=== PATIENT | female | born 1990 | race Caucasian/White ===

== ENCOUNTER 2016-03-11 11:20 | Emergency (ER) | payer OTHER ==
[2016-03-11 13:06] LABS: BASO % 0.9 % (0.0-1.0); EOS # 0.1 K/mm3 (0.0-0.50); EOS % 2.6 % (0.0-3.0); LARGE UNSTAINED CELL # 0.1 K/mm3 (0.0-0.4); LARGE UNSTAINED CELL % 2.2 % (0.0-4.0); LYMPH # 1.4 K/mm3 (1.5-6.5); LYMPH % 39.1 % (24.0-44.0); MEAN CORPUSCULAR HEMOGLOBIN 29.8 pg (27.0-33.0); MEAN CORPUSCULAR HGB CONC 34.4 g/dl (32.0-36.5); MEAN CORPUSCULAR VOLUME 86.7 fl (80.0-96.0); MONO # 0.3 K/mm3 (0.0-0.8); MONO % 7.4 % (0.0-5.0); NEUTROPHILS # 1.7 K/mm3 (1.8-7.7); NEUTROPHILS % 47.8 % (36.0-66.0); PLATELET COUNT, AUTOMATED 190 k/mm3 (150-450); RED CELL DISTRIBUTION WIDTH 14.2 % (11.5-14.5); WHITE BLOOD COUNT 3.5 K/mm3 (4.0-10.0)
[2016-03-11 13:18] LABS: CONTROL LINE HCG INT CTR LINE PRESENT
[2016-03-11 13:19] LABS: INR 0.97
[2016-03-11 13:22] LABS: ANION GAP 9 MEQ/L (8-16); BLOOD UREA NITROGEN 14 MG/DL (7-18); CALCIUM LEVEL 9.3 MG/DL (8.5-10.1); CARBON DIOXIDE LEVEL 27 MEQ/L (21-32); CHLORIDE LEVEL 106 MEQ/L (98-107); CREATININE FOR GFR 0.64 MG/DL (0.55-1.02); GLOMERULAR FILTRATION RATE > 60.0 (>60); GLUCOSE, FASTING 85 MG/DL (70-105); POTASSIUM SERUM 3.3 MEQ/L (3.5-5.1); SODIUM LEVEL 142 MEQ/L (136-145)
--- NOTE | 2016-03-11 14:30 | EDDOCDS ---
Nurse's Notes [facility] Name: Eulalia Santos Age: 25 yrs Sex: Female : 1990 Arrival Date: 03/11/2016 Time: 11:20 Bed PD Private MD: Osmany Blanco D Diagnosis: Abnormal uterine and vaginal bleeding, unspecified;Other ovarian cysts Presentation: 03/11 11:29 Presenting complaint: Patient states: vaginal bleeding for 6 months after giving dy via vaginal delivery 7 months ago. bleeding stopped for a couple of days. for the last month has had dark vaginal bleeding. changing regular every 2-3 hours. Risk factors: The patient reports no loss of conciousness prior to arrival. This patient has not had a hysterectomy. This patient has not begun menopause. Adult Sepsis Screening: The patient does not have new or worsening altered mentation. Patient's respiratory rate is less than 22. Systolic blood pressure is greater than 100. Patient has a qSOFA score of 0- Negative Sepsis Screen. Suicide/Homicide risk assessment- the patient denies having any suicidal and/or homicidal ideations and does not present with any other emotional, behavioral or mental health complaints. Status: Patient is not a front services agent or dependent. Transition of care: patient was not received from another setting of care. 11:29 Acuity: SMITH Level 3 dy 11:29 Method Of Arrival: Walkin/Carried/Asstd dy Triage Assessment: 11:32 General: Appears in no apparent distress. Pain: Denies pain. Pt Declines HIV testing. dy : Reports vaginal bleeding that is bright red light flow. 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 nicotine 21 mg/24 hr TD pt24 1 patch once daily - PMHx: none; - PSHx: none; - Social history: Smoking status: Patient uses tobacco products, light tobacco smoker. No barriers to communication noted, The patient speaks fluent Mexican, Speaks appropriately for age. - Family history: Not pertinent. - : The pt / caregiver states he / she is not on anticoagulants. Home medication list is obtained from the patient. - Exposure Risk Screening:: None identified. Screenin:27 Screening information is obtained from the patient. Fall risk: No risks identified. mlb1 Assistance ADL's: requires no assistance with activities of daily living. Abuse/DV Screen: The patient / caregiver reports he/she is: not in a situation that causes fear, pain or injury. Nutritional screening: No deficits noted. Advance Directives: Currently, there is no health care proxy. home support is adequate. Assessment: 14:26 General: Appears in no apparent distress, comfortable, Behavior is. Pain: Location: mlb1 left inguinal area Pain currently is 4 out of 10 on a pain scale. : Denies vaginal bleeding. Derm: No deficits noted. Vital Signs: 11:22 BP 116 / 72; Pulse 95; Resp 16; Temp 97.3(O); Pulse Ox 97% ; Weight 56.7 kg; Height 5 cmb ft. 4 in. (162.56 cm); Pain 10/10; 12:34 BP 120 / 73 RA Supine (auto/); Pulse 83; jf3 12:34 BP 118 / 67 RA Sitting (auto/); Pulse 91; jf3 12:34 BP 114 / 71 RA Standing (auto/); Pulse 102; jf3 14:24 BP 119 / 74 RA Sitting (auto/reg); Pulse 94; Resp 18; Temp 97.5(O); Pulse Ox 99% on rs6 R/A; Pain 3/10; 11:22 Body Mass Index 21.46 (56.70 kg, 162.56 cm) cmb 12:34 Osmany Nicole aware of ortho VS jf3 Vitals: 11:22 Log In Time: March 11, 2016 at 11:20. cmb ED Course: 11:21 Patient visited by Annabella Stevens. cmb 11:21 Osmany Blanco is Private Physician. cmb 11:21 Patient moved to Waiting cmb 11:23 Patient moved to Pre RCE cmb 11:32 Triage Initiated dy 11:56 Patient moved to Triage 2 mlb1 12:03 Osmany Nicole PA-C is PHCP. ar2 12:03 Maria Isabel Silva MD is Attending Physician. ar2 12:03 Patient visited by Osmany Nicole PA-C. ar2 12:32 Patient moved to PD jf3 12:35 Patient visited by Francisco Lawton RN. jf3 12:48 MED Profile Sent. jf3 12:48 HCG,Serum Qualitative Sent. jf3 12:49 Pt & Aptt Sent. jf3 12:49 Type & Screen Sent. jf3 12:49 CBC with Diff Sent. jf3 12:49 Labs drawn. (by ED staff). Sent per order to lab. jf3 12:50 Patient visited by Francisco Lawton RN. jf3 12:51 Patient moved to Ultrasound sm5 12:57 Assist provider with pelvic exam: Set up pelvic tray. Specimens sent to lab. rs6 12:59 Patient visited by Susan Renner PCA. rs6 12:59 GC & Chlamydia Amplification Sent. rs6 12:59 Wet Prep Sent. rs6 13:02 Patient name changed from Eulalia\S\R\S\Santos\S\ to Eulalia\S\Christine\S\Santos. EDMS 13:03 [facility] Payment Agreement was scanned into [employer] and attached to record. lg 13:17 Patient moved to PD [facility] 14:11 Marisel Smith MD is Referral Physician. ar2 14:24 Patient visited by Susan Renner PCA. rs6 14:28 The patient / caregiver is instructed regarding the plan of care and ED course. mlb1 14:28 No IV's were initiated during this patient's visit. mlb1 Order Results: Lab Order: CBC with Diff; SPEC'M 03/11/16 12:42 Test: WHITE BLOOD COUNT; Value: 3.5; Range: 4.0-10.0; Abnormal: Below low normal; Units: K/mm3; Status: F Test: RED BLOOD COUNT; Value: 5.05; Range: 4.00-5.40; Units: M/mm3; Status: F Test: HEMOGLOBIN; Value: 15.1; Range: 12.0-16.0; Units: g/dl; Status: F Test: HEMATOCRIT; Value: 43.7; Range: 36.0-47.0; Units: %; Status: F Test: MEAN CORPUSCULAR VOLUME; Value: 86.7; Range: 80.0-96.0; Units: fl; Status: F Test: MEAN CORPUSCULAR HEMOGLOBIN; Value: 29.8; Range: 27.0-33.0; Units: pg; Status: F Test: MEAN CORPUSCULAR HGB CONC; Value: 34.4; Range: 32.0-36.5; Units: g/dl; Status: F Test: RED CELL DISTRIBUTION WIDTH; Value: 14.2; Range: 11.5-14.5; Units: %; Status: F Test: PLATELET COUNT, AUTOMATED; Value: 190; Range: 150-450; Units: k/mm3; Status: F Test: NEUTROPHILS %; Value: 47.8; Range: 36.0-66.0; Units: %; Status: F Test: LYMPH %; Value: 39.1; Range: 24.0-44.0; Units: %; Status: F Test: MONO %; Value: 7.4; Range: 0.0-5.0; Abnormal: Above high normal; Units: %; Status: F Test: EOS %; Value: 2.6; Range: 0.0-3.0; Units: %; Status: F Test: BASO %; Value: 0.9; Range: 0.0-1.0; Units: %; Status: F Test: LARGE UNSTAINED CELL %; Value: 2.2; Range: 0.0-4.0; Units: %; Status: F Test: NEUTROPHILS #; Value: 1.7; Range: 1.8-7.7; Abnormal: Below low normal; Units: K/mm3; Status: F Test: LYMPH #; Value: 1.4; Range: 1.5-6.5; Abnormal: Below low normal; Units: K/mm3; Status: F Test: MONO #; Value: 0.3; Range: 0.0-0.8; Units: K/mm3; Status: F Test: EOS #; Value: 0.1; Range: 0.0-0.50; Units: K/mm3; Status: F Test: BASO #; Value: 0.0; Range: 0.0-0.2; Units: K/mm3; Status: F Test: LARGE UNSTAINED CELL #; Value: 0.1; Range: 0.0-0.4; Units: K/mm3; Status: F Lab Order: Type & Screen; SPEC'M 03/11/16 12:42 Test: BLOOD TYPE; Value: O POS; Status: F Test: AB SCREEN (INDIRECT ADY)GEL; Value: NEGATIVE; Status: F Lab Order: Pt & Aptt; [facility]' 03/11/16 12:42 Test: PROTHROMBIN TIME; Value: 13.0; Range: 12.3-14.5; Units: SECONDS; Status: F Test: INR; Value: 0.97; Status: F Test: PARTIAL THROMBOPLASTIN TIME; Value: 28.6; Range: 26.6-37.1; Units: SECONDS; Status: F Test Note: ; THERAPUTIC HUMAN INR VALUES INDICATIONS NORMAL RANGES PROPHYLAXIS/TREATMENT OF: VENOUS THROMBOSIS 2.0-3.0 PULMONARY EMBOLISM 2.0-3.0 PREVENTION OF SYSTEMIC EMBOLISM FROM: TISSUE HEART VALVES 2.0-3.0 ACUTE MYOCARDIAL INFARCTION 2.0-3.0 VALVULAR HEART DISEASE 2.0-3.0 ATRIAL FIBRILLATION 2.0-3.0 MECHANICAL VALVES(HIGH RISK) 2.5-3.5 RECURRENT MYOCARDIAL INFARCTION 2.5-3.5 Lab Order: HCG,Serum Qualitative; SPEC' 03/11/16 12:42 Test: HCG, SERUM QUALITATIVE; Value: NEGATIVE; Range: NEGATIVE; Status: F Lab Order: MED Profile; SPEC'M 03/11/16 12:42 Test: GLUCOSE, FASTING; Value: 85; Range: 70-105; Units: MG/DL; Status: F Test: BLOOD UREA NITROGEN; Value: 14; Range: 7-18; Units: MG/DL; Status: F Test: CREATININE FOR GFR; Value: 0.64; Range: 0.55-1.02; Units: MG/DL; Status: F Test: SODIUM LEVEL; Range: 136-145; Units: MEQ/L; Status: I Test: POTASSIUM SERUM; Range: 3.5-5.1; Units: MEQ/L; Status: I Test: CHLORIDE LEVEL; Range: 98-107; Units: MEQ/L; Status: I Test: CARBON DIOXIDE LEVEL; Range: 21-32; Units: MEQ/L; Status: I Test: ANION GAP; Range: 8-16; Units: MEQ/L; Status: I Test: CALCIUM LEVEL; Range: 8.5-10.1; Units: MG/DL; Status: I Test: GLOMERULAR FILTRATION RATE; Value: > 60.0; Range: >60; Status: F Test: SODIUM LEVEL; Value: 142; Range: 136-145; Units: MEQ/L; Status: F Test: POTASSIUM SERUM; Value: 3.3; Range: 3.5-5.1; Abnormal: Below low normal; Units: MEQ/L; Status: F Test: CHLORIDE LEVEL; Value: 106; Range: 98-107; Units: MEQ/L; Status: F Test: CARBON DIOXIDE LEVEL; Value: 27; Range: 21-32; Units: MEQ/L; Status: F Test: ANION GAP; Value: 9; Range: 8-16; Units: MEQ/L; Status: F Test: CALCIUM LEVEL; Value: 9.3; Range: 8.5-10.1; Units: MG/DL; Status: F Test Note: ; Units are mL/min/1.73 m2 Chronic Kidney Disease Staging per NKF: Stage I & II GFR >=60 Normal to Mildly Decreased Stage III GFR 30-59 Moderately Decreased Stage IV GFR 15-29 Severely Decreased Stage V GFR <15 Very Little GFR Left ESRD GFR <15 on ASSISTANT SITE MANAGER Lab Order: Wet Prep; SPEC'M 03/11/16 12:58 Test: WET PREP; Value: WET PREP RESULT; Status: F Test: WET PREP; Value: MODERATE EPITHELIAL CELLS PRESENT; Status: F Test: WET PREP; Value: FEW WBC; Status: F Test: WET PREP; Value: FEW SHORT RODS PRESENT; Status: F Test: WET PREP; Value: FEW RBC; Status: F Test: WET PREP; Value: FEW YEAST LIKE ORGANISM PRESENT; Status: F Outcome: 14:12 Discharge ordered by Provider. ar2 14:28 Discharge Assessment: Patient awake, alert and oriented x 3. No cognitive and/or mlb1 functional deficits noted. Patient verbalized understanding of disposition instructions. Discharge Assessment: patient administered narcotics - no. The following High Risk Discharge criteria are identified:. The following High Risk Discharge criteria are identified: None. Discharged to home ambulatory. Condition: good. Discharge instructions given to patient, Instructed on discharge instructions, follow up and referral plans. medication usage, Demonstrated understanding of instructions, medications, Pt was receptive of discharge instructions/ teaching. Prescriptions given X 1. Ultrasound Study completed. Property sent home with patient. 14:28 Patient left the ED. mlb1 Signatures: [facility]patcher [facility] EDKassandra Lamas Reg Reg lg Youngs, David RN RN dy Didi Guadalupe sm5 Oswaldo Gallardo RN RN mlb1 Osmany Nicole, ANIYA PAJunior ar2 Annabella Stevens Rebecca, HOGSHEAD DUMPER HOGSHEAD DUMPER rs6 Francisco Lawton,RN RN jf3 Corrections: (The following items were deleted from the chart) 11:33 11:32 Home Meds: none; dy dy MTDD
--- NOTE | 2016-03-11 14:30 | EDDOCDS ---
Physician Documentation [facility] Name: Eulalia Santos Age: 25 yrs Sex: Female : 1990 Arrival Date: 03/11/2016 Time: 11:20 Bed PD Private MD: Osmany Blanco D Disposition: 03/11/16 14:12 Discharged to Home/Self Care. Impression: Abnormal uterine and vaginal bleeding, unspecified, Other ovarian cysts. - Condition is Stable. - Discharge Instructions: Abnormal Uterine Bleeding, Ovarian Cyst. - Prescriptions for Naprosyn 500 mg Oral Tablet - take 1 tablet by ORAL route 2 times per day take with food; 30 tablet. - Medication Reconciliation, Local Pharmacy Hours form. - Follow up: Marisel Smith MD; When: Call to arrange an appointment; Reason: Recheck today's complaints, To establish care. Follow up: Emergency Department; When: As needed; Reason: Worsening of conditions. - Problem is an ongoing problem. - Symptoms are unchanged. - Notes: call for follow up appointment Historical: - Allergies: PENICILLINS; Amoxicillin; - Home Meds: 1. nicotine 21 mg/24 hr TD pt24 1 patch once daily - PMHx: none; - PSHx: none; - Social history: Smoking status: Patient uses tobacco products, light tobacco smoker. No barriers to communication noted, The patient speaks fluent Faroese, Speaks appropriately for age. - Family history: Not pertinent. - : The pt / caregiver states he / she is not on anticoagulants. Home medication list is obtained from the patient. - Exposure Risk Screening:: None identified. 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 4 in. (162.56 cm); Pain 10/10; 12:34 BP 120 / 73 RA Supine (auto/); Pulse 83; jf3 12:34 BP 118 / 67 RA Sitting (auto/); Pulse 91; jf3 12:34 BP 114 / 71 RA Standing (auto/); Pulse 102; jf3 14:24 BP 119 / 74 RA Sitting (auto/reg); Pulse 94; Resp 18; Temp 97.5(O); Pulse Ox 99% on rs6 R/A; Pain 3/10; 11:22 Body Mass Index 21.46 (56.70 kg, 162.56 cm) cmb 12:34 Osmany Nicole aware of ortho VS jf3 MDM: 12:08 Financial registration complete. lg 12:21 Orthostatic VS ordered. ar2 12:21 Set up pelvic ordered. ar2 12:22 CBC with Diff Ordered. EDMS 12:23 Type & Screen Ordered. EDMS 12:23 Pt & Aptt Ordered. EDMS 12:23 HCG,Serum Qualitative Ordered. EDMS 12:23 MED Profile Ordered. EDMS 12:23 -US Pelvic Non-Ob Complete Ordered. EDMS 12:23 DUPLEX SCAN LIMITED (DOPPLER)+US Ordered. EDMS 12:58 GC & Chlamydia Amplification Ordered. EDMS 12:58 Wet Prep Ordered. EDMS 13:03 [facility] [place] Payment Agreement was scanned into [employer] and attached to record. lg 13:21 Transvaginal NON- US Ordered. EDMS 13:38 CBC with Diff Reviewed. ar2 13:38 MED Profile Reviewed. ar2 13:38 Pt & Aptt Reviewed. ar2 13:38 HCG,Serum Qualitative Reviewed. ar2 13:38 Wet Prep Reviewed. ar2 Signatures: Dispatcher [employer] EDMS Kassandra Laureano, Reg Reg lg Venkata Beverly, RN Oswaldo Villanueva RN RN mlb1 Osmany Nicole, PA-C PA-C ar2 The chart was reviewed and I authenticate all verbal orders and agree with the evaluation and treatment provided.Corrections: (The following items were deleted from the chart) 11:33 11:32 Home Meds: none; dy dy Attachments: 13:03 [facility] [place] Payment Agreement lg MTDD
--- NOTE | 2016-03-12 11:30 | REP ---
Pelvic ultrasound, non OB, 03/11 16 Indication: Abnormal bleeding for 6 months Comparison: Pelvic ultrasound 10/30/[address] [facility] Study performed transabdominally and transvaginally. Findings: Uterus measures 7.9 x 3.6 x 4.6 cm. Endometrium is 3.7 mm in thickness and smooth. Right ovary measures 3.8 x 2.6 x 3.3 cm and contains small follicles. Left ovary measures 4.4 x 3.2 x 4.6 cm and contains a complex cyst measuring 3.7 x 3.5 x 2.9 cm with two small peripheral daughter cysts. Perfusion is noted to the bilateral ovaries, therefore no evidence of torsion. There is no free fluid in the cul-de-sac Impression 1. Endometrium 3.7 mm in thickness and smooth. 2. Unremarkable right ovary. Complex 3.7 cm left ovarian cyst with two small peripheral daughter cysts. Follow-up is recommended to ensure resolution. Ovaries without torsion. 3. No free fluid in cul-de-sac. Signed by Rose Marie Turner MD 03/12/2016 11:22 A
--- NOTE | 2016-03-13 15:30 | EDDOCDS ---
Physician Documentation [facility] Name: Eulalia Santos Age: 25 yrs Sex: Female : 1990 Arrival Date: 03/11/2016 Time: 11:20 Bed PD Private MD: Osmany Blanco D Disposition: 03/11/16 14:12 Discharged to Home/Self Care. Impression: Abnormal uterine and vaginal bleeding, unspecified, Other ovarian cysts. - Condition is Stable. - Discharge Instructions: Abnormal Uterine Bleeding, Ovarian Cyst. - Prescriptions for Naprosyn 500 mg Oral Tablet - take 1 tablet by ORAL route 2 times per day take with food; 30 tablet. - Medication Reconciliation, Local Pharmacy Hours form. - Follow up: Marisel Lanza MD; When: Call to arrange an appointment; Reason: Recheck today's complaints, To establish care. Follow up: Emergency Department; When: As needed; Reason: Worsening of conditions. - Problem is an ongoing problem. - Symptoms are unchanged. - Notes: call for follow up appointment Historical: - Allergies: PENICILLINS; Amoxicillin; - Home Meds: 1. nicotine 21 mg/24 hr TD pt24 1 patch once daily - PMHx: none; - PSHx: none; - Social history: Smoking status: Patient uses tobacco products, light tobacco smoker. No barriers to communication noted, The patient speaks fluent Lithuanian, Speaks appropriately for age. - Family history: Not pertinent. - : The pt / caregiver states he / she is not on anticoagulants. Home medication list is obtained from the patient. - Exposure Risk Screening:: None identified. 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 4 in. (162.56 cm); Pain 10/10; 12:34 BP 120 / 73 RA Supine (auto/); Pulse 83; jf3 12:34 BP 118 / 67 RA Sitting (auto/); Pulse 91; jf3 12:34 BP 114 / 71 RA Standing (auto/); Pulse 102; jf3 14:24 BP 119 / 74 RA Sitting (auto/reg); Pulse 94; Resp 18; Temp 97.5(O); Pulse Ox 99% on rs6 R/A; Pain 3/10; 11:22 Body Mass Index 21.46 (56.70 kg, 162.56 cm) cmb 12:34 Osmany Nicole aware of ortho VS jf3 MDM: 12:08 Financial registration complete. lg 12:21 Orthostatic VS ordered. ar2 12:21 Set up pelvic ordered. ar2 12:22 CBC with Diff Ordered. EDMS 12:23 Type & Screen Ordered. EDMS 12:23 Pt & Aptt Ordered. EDMS 12:23 HCG,Serum Qualitative Ordered. EDMS 12:23 MED Profile Ordered. EDMS 12:23 -US Pelvic Non-Ob Complete Ordered. EDMS 12:23 DUPLEX SCAN LIMITED (DOPPLER)+US Ordered. EDMS 12:58 GC & Chlamydia Amplification Ordered. EDMS 12:58 Wet Prep Ordered. EDMS 13:03 [facility] [place] Payment Agreement was scanned into [employer] and attached to record. lg 13:21 Transvaginal NON- US Ordered. EDMS 13:38 CBC with Diff Reviewed. ar2 13:38 MED Profile Reviewed. ar2 13:38 Pt & Aptt Reviewed. ar2 13:38 HCG,Serum Qualitative Reviewed. ar2 13:38 Wet Prep Reviewed. ar2 15:24 T-Sheet-- Draft Copy was scanned into [employer] and attached to record. gb 15:24 Radiology Report was scanned into [employer] and attached to record. gb 03/12 12:31 ED course: dr lanza faxed formal report of pelvic us for fu mlg. ml Signatures: Dispatcher [employer] EDAZ Maria Isabel Silva MD MD ml Barnhardt, Gloria, Reg Reg gb Kassandra Laureano, Reg Reg lg Venkata Beverly RN RN dy Barney, Michael B, RN RN mlOsmany Matthews, ANIYA PAJunior ar2 The chart was reviewed and I authenticate all verbal orders and agree with the evaluation and treatment provided.Corrections: (The following items were deleted from the chart) 03/11 11:33 11:32 Home Meds: none; dy dy Attachments: 13:03 [facility] [place] Payment Agreement lg 15:24 T-Sheet-- Draft Copy gb Chart Complete MTDD
--- NOTE | 2016-03-13 15:30 | EDDOCDS ---
Nurse's Notes [facility] Name: Eulalia Santos Age: 25 yrs Sex: Female : 1990 Arrival Date: 03/11/2016 Time: 11:20 Bed PD Private MD: Osmany Blanco D Diagnosis: Abnormal uterine and vaginal bleeding, unspecified;Other ovarian cysts Presentation: 03/11 11:29 Presenting complaint: Patient states: vaginal bleeding for 6 months after giving dy via vaginal delivery 7 months ago. bleeding stopped for a couple of days. for the last month has had dark vaginal bleeding. changing regular every 2-3 hours. Risk factors: The patient reports no loss of conciousness prior to arrival. This patient has not had a hysterectomy. This patient has not begun menopause. Adult Sepsis Screening: The patient does not have new or worsening altered mentation. Patient's respiratory rate is less than 22. Systolic blood pressure is greater than 100. Patient has a qSOFA score of 0- Negative Sepsis Screen. Suicide/Homicide risk assessment- the patient denies having any suicidal and/or homicidal ideations and does not present with any other emotional, behavioral or mental health complaints. Status: Patient is not a custodial services manager or dependent. Transition of care: patient was not received from another setting of care. 11:29 Acuity: SMITH Level 3 dy 11:29 Method Of Arrival: Walkin/Carried/Asstd dy Triage Assessment: 11:32 General: Appears in no apparent distress. Pain: Denies pain. Pt Declines HIV testing. dy : Reports vaginal bleeding that is bright red light flow. 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 nicotine 21 mg/24 hr TD pt24 1 patch once daily - PMHx: none; - PSHx: none; - Social history: Smoking status: Patient uses tobacco products, light tobacco smoker. No barriers to communication noted, The patient speaks fluent South African, Speaks appropriately for age. - Family history: Not pertinent. - : The pt / caregiver states he / she is not on anticoagulants. Home medication list is obtained from the patient. - Exposure Risk Screening:: None identified. Screenin:27 Screening information is obtained from the patient. Fall risk: No risks identified. mlb1 Assistance ADL's: requires no assistance with activities of daily living. Abuse/DV Screen: The patient / caregiver reports he/she is: not in a situation that causes fear, pain or injury. Nutritional screening: No deficits noted. Advance Directives: Currently, there is no health care proxy. home support is adequate. Assessment: 14:26 General: Appears in no apparent distress, comfortable, Behavior is. Pain: Location: mlb1 left inguinal area Pain currently is 4 out of 10 on a pain scale. : Denies vaginal bleeding. Derm: No deficits noted. Vital Signs: 11:22 BP 116 / 72; Pulse 95; Resp 16; Temp 97.3(O); Pulse Ox 97% ; Weight 56.7 kg; Height 5 cmb ft. 4 in. (162.56 cm); Pain 10/10; 12:34 BP 120 / 73 RA Supine (auto/); Pulse 83; jf3 12:34 BP 118 / 67 RA Sitting (auto/); Pulse 91; jf3 12:34 BP 114 / 71 RA Standing (auto/); Pulse 102; jf3 14:24 BP 119 / 74 RA Sitting (auto/reg); Pulse 94; Resp 18; Temp 97.5(O); Pulse Ox 99% on rs6 R/A; Pain 3/10; 11:22 Body Mass Index 21.46 (56.70 kg, 162.56 cm) cmb 12:34 Osmany Nicole aware of ortho VS jf3 Vitals: 11:22 Log In Time: March 11, 2016 at 11:20. cmb ED Course: 11:21 Patient visited by Annabella Stevens. cmb 11:21 Osmany Blanco is Private Physician. cmb 11:21 Patient moved to Waiting cmb 11:23 Patient moved to Pre RCE cmb 11:32 Triage Initiated dy 11:56 Patient moved to Triage 2 mlb1 12:03 Osmany Nicole PA-C is PHCP. ar2 12:03 Maria Isabel Silva MD is Attending Physician. ar2 12:03 Patient visited by Osmany Nicole PA-C. ar2 12:32 Patient moved to PD jf3 12:35 Patient visited by Francisco Lawton RN. jf3 12:48 MED Profile Sent. jf3 12:48 HCG,Serum Qualitative Sent. jf3 12:49 Pt & Aptt Sent. jf3 12:49 Type & Screen Sent. jf3 12:49 CBC with Diff Sent. jf3 12:49 Labs drawn. (by ED staff). Sent per order to lab. jf3 12:50 Patient visited by Francisco Lawton RN. jf3 12:51 Patient moved to Ultrasound sm5 12:57 Assist provider with pelvic exam: Set up pelvic tray. Specimens sent to lab. rs6 12:59 Patient visited by Susan Renner PCA. rs6 12:59 GC & Chlamydia Amplification Sent. rs6 12:59 Wet Prep Sent. rs6 13:02 Patient name changed from Eulalia\S\R\S\Santos\S\ to Eulalia\S\Christine\S\Santos. EDMS 13:03 [facility] Payment Agreement was scanned into [employer] and attached to record. lg 13:17 Patient moved to PD [facility] 14:11 Marisel Smith MD is Referral Physician. ar2 14:24 Patient visited by Susan Renner PCA. rs6 14:28 The patient / caregiver is instructed regarding the plan of care and ED course. mlb1 14:28 No IV's were initiated during this patient's visit. mlb1 15:24 T-Sheet-- Draft Copy was scanned into [employer] and attached to record. gb 15:24 Radiology Report was scanned into [employer] and attached to record. gb 03/12 11:41 -US Pelvic Non-Ob Complete Returned. EDMS Order Results: Lab Order: CBC with Diff; SPEC'M 03/11/16 12:42 Test: WHITE BLOOD COUNT; Value: 3.5; Range: 4.0-10.0; Abnormal: Below low normal; Units: K/mm3; Status: F Test: RED BLOOD COUNT; Value: 5.05; Range: 4.00-5.40; Units: M/mm3; Status: F Test: HEMOGLOBIN; Value: 15.1; Range: 12.0-16.0; Units: g/dl; Status: F Test: HEMATOCRIT; Value: 43.7; Range: 36.0-47.0; Units: %; Status: F Test: MEAN CORPUSCULAR VOLUME; Value: 86.7; Range: 80.0-96.0; Units: fl; Status: F Test: MEAN CORPUSCULAR HEMOGLOBIN; Value: 29.8; Range: 27.0-33.0; Units: pg; Status: F Test: MEAN CORPUSCULAR HGB CONC; Value: 34.4; Range: 32.0-36.5; Units: g/dl; Status: F Test: RED CELL DISTRIBUTION WIDTH; Value: 14.2; Range: 11.5-14.5; Units: %; Status: F Test: PLATELET COUNT, AUTOMATED; Value: 190; Range: 150-450; Units: k/mm3; Status: F Test: NEUTROPHILS %; Value: 47.8; Range: 36.0-66.0; Units: %; Status: F Test: LYMPH %; Value: 39.1; Range: 24.0-44.0; Units: %; Status: F Test: MONO %; Value: 7.4; Range: 0.0-5.0; Abnormal: Above high normal; Units: %; Status: F Test: EOS %; Value: 2.6; Range: 0.0-3.0; Units: %; Status: F Test: BASO %; Value: 0.9; Range: 0.0-1.0; Units: %; Status: F Test: LARGE UNSTAINED CELL %; Value: 2.2; Range: 0.0-4.0; Units: %; Status: F Test: NEUTROPHILS #; Value: 1.7; Range: 1.8-7.7; Abnormal: Below low normal; Units: K/mm3; Status: F Test: LYMPH #; Value: 1.4; Range: 1.5-6.5; Abnormal: Below low normal; Units: K/mm3; Status: F Test: MONO #; Value: 0.3; Range: 0.0-0.8; Units: K/mm3; Status: F Test: EOS #; Value: 0.1; Range: 0.0-0.50; Units: K/mm3; Status: F Test: BASO #; Value: 0.0; Range: 0.0-0.2; Units: K/mm3; Status: F Test: LARGE UNSTAINED CELL #; Value: 0.1; Range: 0.0-0.4; Units: K/mm3; Status: F Lab Order: Type & Screen; [facility] 03/11/16 12:42 Test: BLOOD TYPE; Value: O POS; Status: F Test: AB SCREEN (INDIRECT ADY)GEL; Value: NEGATIVE; Status: F Lab Order: Pt & Aptt; [facility] 03/11/16 12:42 Test: PROTHROMBIN TIME; Value: 13.0; Range: 12.3-14.5; Units: SECONDS; Status: F Test: INR; Value: 0.97; Status: F Test: PARTIAL THROMBOPLASTIN TIME; Value: 28.6; Range: 26.6-37.1; Units: SECONDS; Status: F Test Note: ; THERAPUTIC HUMAN INR VALUES INDICATIONS NORMAL RANGES PROPHYLAXIS/TREATMENT OF: VENOUS THROMBOSIS 2.0-3.0 PULMONARY EMBOLISM 2.0-3.0 PREVENTION OF SYSTEMIC EMBOLISM FROM: TISSUE HEART VALVES 2.0-3.0 ACUTE MYOCARDIAL INFARCTION 2.0-3.0 VALVULAR HEART DISEASE 2.0-3.0 ATRIAL FIBRILLATION 2.0-3.0 MECHANICAL VALVES(HIGH RISK) 2.5-3.5 RECURRENT MYOCARDIAL INFARCTION 2.5-3.5 Lab Order: HCG,Serum Qualitative; [facility] 03/11/16 12:42 Test: HCG, SERUM QUALITATIVE; Value: NEGATIVE; Range: NEGATIVE; Status: F Lab Order: MED Profile; [facility] 03/11/16 12:42 Test: GLUCOSE, FASTING; Value: 85; Range: 70-105; Units: MG/DL; Status: F Test: BLOOD UREA NITROGEN; Value: 14; Range: 7-18; Units: MG/DL; Status: F Test: CREATININE FOR GFR; Value: 0.64; Range: 0.55-1.02; Units: MG/DL; Status: F Test: SODIUM LEVEL; Range: 136-145; Units: MEQ/L; Status: I Test: POTASSIUM SERUM; Range: 3.5-5.1; Units: MEQ/L; Status: I Test: CHLORIDE LEVEL; Range: 98-107; Units: MEQ/L; Status: I Test: CARBON DIOXIDE LEVEL; Range: 21-32; Units: MEQ/L; Status: I Test: ANION GAP; Range: 8-16; Units: MEQ/L; Status: I Test: CALCIUM LEVEL; Range: 8.5-10.1; Units: MG/DL; Status: I Test: GLOMERULAR FILTRATION RATE; Value: > 60.0; Range: >60; Status: F Test: SODIUM LEVEL; Value: 142; Range: 136-145; Units: MEQ/L; Status: F Test: POTASSIUM SERUM; Value: 3.3; Range: 3.5-5.1; Abnormal: Below low normal; Units: MEQ/L; Status: F Test: CHLORIDE LEVEL; Value: 106; Range: 98-107; Units: MEQ/L; Status: F Test: CARBON DIOXIDE LEVEL; Value: 27; Range: 21-32; Units: MEQ/L; Status: F Test: ANION GAP; Value: 9; Range: 8-16; Units: MEQ/L; Status: F Test: CALCIUM LEVEL; Value: 9.3; Range: 8.5-10.1; Units: MG/DL; Status: F Test Note: ; Units are mL/min/1.73 m2 Chronic Kidney Disease Staging per NKF: Stage I & II GFR >=60 Normal to Mildly Decreased Stage III GFR 30-59 Moderately Decreased Stage IV GFR 15-29 Severely Decreased Stage V GFR <15 Very Little GFR Left ESRD GFR <15 on [facility] Lab Order: Wet Prep; SPEC'M 03/11/16 12:58 Test: WET PREP; Value: WET PREP RESULT; Status: F Test: WET PREP; Value: MODERATE EPITHELIAL CELLS PRESENT; Status: F Test: WET PREP; Value: FEW WBC; Status: F Test: WET PREP; Value: FEW SHORT RODS PRESENT; Status: F Test: WET PREP; Value: FEW RBC; Status: F Test: WET PREP; Value: FEW YEAST LIKE ORGANISM PRESENT; Status: F Lab Order: GC & Chlamydia Amplification; SPEC'M 03/11/16 12:58 Test: CHLAMYDIA DNA AMPLIFICATION; Value: NEGATIVE; Range: NEGATIVE; Status: F Test: GC DNA AMPLIFICATION; Value: NEGATIVE; Range: NEGATIVE; Status: F Radiology Order: -US Pelvic Non-Ob Complete Test: -US Pelvic Non-Ob Complete REASON FOR EXAMINATION: abnormal bleeding; Pelvic ultrasound, non OB, 03/11 16; ; Indication: Abnormal bleeding for 6 months; ; Comparison: Pelvic ultrasound 10/30/2015 performed at [facility]; ; Study performed transabdominally and transvaginally.; ; Findings: Uterus measures 7.9 x 3.6 x 4.6 cm. Endometrium is 3.7 mm in thickness; and smooth.; ; Right ovary measures 3.8 x 2.6 x 3.3 cm and contains small follicles. Left ovary; measures 4.4 x 3.2 x 4.6 cm and contains a complex cyst measuring 3.7 x 3.5 x; 2.9 cm with two small peripheral daughter cysts. Perfusion is noted to the; bilateral ovaries, therefore no evidence of torsion.; ; There is no free fluid in the cul-de-sac; ; Impression; 1. Endometrium 3.7 mm in thickness and smooth.; 2. Unremarkable right ovary. Complex 3.7 cm left ovarian cyst with two small; peripheral daughter cysts. Follow-up is recommended to ensure resolution. Ovaries; without torsion.; 3. No free fluid in cul-de-sac.; ; ; ; ; Signed by; Rose Marie Turner MD 03/12/2016 11:22 A; Outcome: 03/11 14:12 Discharge ordered by Provider. ar2 14:28 Discharge Assessment: Patient awake, alert and oriented x 3. No cognitive and/or mlb1 functional deficits noted. Patient verbalized understanding of disposition instructions. Discharge Assessment: patient administered narcotics - no. The following High Risk Discharge criteria are identified:. The following High Risk Discharge criteria are identified: None. Discharged to home ambulatory. Condition: good. Discharge instructions given to patient, Instructed on discharge instructions, follow up and referral plans. medication usage, Demonstrated understanding of instructions, medications, Pt was receptive of discharge instructions/ teaching. Prescriptions given X 1. Ultrasound Study completed. Property sent home with patient. 14:28 Patient left the ED. mlb1 Signatures: Dispatcher [employer] EDMS Marlen Mtz, Reg Reg gb Kassandra Laureano, Reg Reg lg Venkata Beverly RN Didi Newman 5 Oswaldo Gallardo RN RN mlb1 Osmany Nicole, PAJunior PATrevonC ar2 Annabella Stevens cmSusan Cagle, BRASS POLISHER BRASS POLISHER rs6 Francisco Lawton,CHELE RN jf3 Corrections: (The following items were deleted from the chart) 11:33 11:32 Home Meds: none; dy dy Chart Complete MTDD
--- NOTE | 2016-03-13 15:30 | EDDOCDS ---
Physician Documentation [facility] Name: Eulalia Santos Age: 25 yrs Sex: Female : 1990 Arrival Date: 03/11/2016 Time: 11:20 Bed PD Private MD: Osmany Blanco D Disposition: 03/11/16 14:12 Discharged to Home/Self Care. Impression: Abnormal uterine and vaginal bleeding, unspecified, Other ovarian cysts. - Condition is Stable. - Discharge Instructions: Abnormal Uterine Bleeding, Ovarian Cyst. - Prescriptions for Naprosyn 500 mg Oral Tablet - take 1 tablet by ORAL route 2 times per day take with food; 30 tablet. - Medication Reconciliation, Local Pharmacy Hours form. - Follow up: Marisel Lanza MD; When: Call to arrange an appointment; Reason: Recheck today's complaints, To establish care. Follow up: Emergency Department; When: As needed; Reason: Worsening of conditions. - Problem is an ongoing problem. - Symptoms are unchanged. - Notes: call for follow up appointment Historical: - Allergies: PENICILLINS; Amoxicillin; - Home Meds: 1. nicotine 21 mg/24 hr TD pt24 1 patch once daily - PMHx: none; - PSHx: none; - Social history: Smoking status: Patient uses tobacco products, light tobacco smoker. No barriers to communication noted, The patient speaks fluent Tajik, Speaks appropriately for age. - Family history: Not pertinent. - : The pt / caregiver states he / she is not on anticoagulants. Home medication list is obtained from the patient. - Exposure Risk Screening:: None identified. 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 4 in. (162.56 cm); Pain 10/10; 12:34 BP 120 / 73 RA Supine (auto/); Pulse 83; jf3 12:34 BP 118 / 67 RA Sitting (auto/); Pulse 91; jf3 12:34 BP 114 / 71 RA Standing (auto/); Pulse 102; jf3 14:24 BP 119 / 74 RA Sitting (auto/reg); Pulse 94; Resp 18; Temp 97.5(O); Pulse Ox 99% on rs6 R/A; Pain 3/10; 11:22 Body Mass Index 21.46 (56.70 kg, 162.56 cm) cmb 12:34 Osmany Nicole aware of ortho VS jf3 MDM: 12:08 Financial registration complete. lg 12:21 Orthostatic VS ordered. ar2 12:21 Set up pelvic ordered. ar2 12:22 CBC with Diff Ordered. EDMS 12:23 Type & Screen Ordered. EDMS 12:23 Pt & Aptt Ordered. EDMS 12:23 HCG,Serum Qualitative Ordered. EDMS 12:23 MED Profile Ordered. EDMS 12:23 -US Pelvic Non-Ob Complete Ordered. EDMS 12:23 DUPLEX SCAN LIMITED (DOPPLER)+US Ordered. EDMS 12:58 GC & Chlamydia Amplification Ordered. EDMS 12:58 Wet Prep Ordered. EDMS 13:03 [facility] [place] Agreement was scanned into [employer] and attached to record. lg 13:21 Transvaginal NON- US Ordered. EDMS 13:38 CBC with Diff Reviewed. ar2 13:38 MED Profile Reviewed. ar2 13:38 Pt & Aptt Reviewed. ar2 13:38 HCG,Serum Qualitative Reviewed. ar2 13:38 Wet Prep Reviewed. ar2 15:24 T-Sheet-- Draft Copy was scanned into [employer] and attached to record. gb 15:24 Radiology Report was scanned into [employer] and attached to record. gb 03/12 12:31 ED course: dr lanza faxed formal report of pelvic us for fu mlg. ml Signatures: Dispatcher [employer] EDWA Maria Isabel Silva MD MD ml Barnhardt, Gloria, Reg Reg gb Kassandra Laureano, Reg Reg lg Venkata Beverly RN RN dy Barney, Michael B, RN RN mlOsmany Matthews, ANIYA PAJunior ar2 The chart was reviewed and I authenticate all verbal orders and agree with the evaluation and treatment provided.Corrections: (The following items were deleted from the chart) 03/11 11:33 11:32 Home Meds: none; dy dy Attachments: 13:03 [facility] [place] Agreement lg 15:24 T-Sheet-- Draft Copy gb Chart Complete MTDD
== END 2016-03-11 14:28 | disposition home or self-care (01) ==
LOC: M ED 11:20
DX: N93.9 Abnormal uterine and vaginal bleeding, unspecified (principal); N83.292 Other ovarian cyst, left side; Z72.0 Tobacco use; Z79.899 Other long term (current) drug therapy; Z88.0 Allergy status to penicillin

== ENCOUNTER 2016-04-05 09:17 | Emergency (ER) | payer OTHER ==
[2016-04-05 10:37] LABS: BASO % 0.4 % (0.0-1.0); EOS # 0.2 K/mm3 (0.0-0.50); EOS % 2.5 % (0.0-3.0); LARGE UNSTAINED CELL # 0.1 K/mm3 (0.0-0.4); LARGE UNSTAINED CELL % 1.1 % (0.0-4.0); LYMPH # 1.2 K/mm3 (1.5-6.5); LYMPH % 14.6 % (24.0-44.0); MEAN CORPUSCULAR HGB CONC 33.1 g/dl (32.0-36.5); MEAN CORPUSCULAR VOLUME 87.5 fl (80.0-96.0); MONO # 0.5 K/mm3 (0.0-0.8); MONO % 6.1 % (0.0-5.0); NEUTROPHILS # 5.8 K/mm3 (1.8-7.7); NEUTROPHILS % 75.3 % (36.0-66.0); PLATELET COUNT, AUTOMATED 233 k/mm3 (150-450); RED CELL DISTRIBUTION WIDTH 14.3 % (11.5-14.5); WHITE BLOOD COUNT 7.6 K/mm3 (4.0-10.0)
[2016-04-05 11:04] LABS: CONTROL LINE MONO INT CTR LINE PRESENT
[2016-04-05 11:16] LABS: ALBUMIN 4.2 GM/DL (3.2-5.2); ALBUMIN/GLOBULIN RATIO 1.35 (1.00-1.93); ALKALINE PHOSPHATASE 107 U/L (45-117); ALT/SGPT 27 U/L (12-78); ANION GAP 9 MEQ/L (8-16); AST/SGOT 13 U/L (15-37); BILIRUBIN,DIRECT 0.2 MG/DL (0.0-0.2); BILIRUBIN,TOTAL 0.6 MG/DL (0.2-1.0); BLOOD UREA NITROGEN 12 MG/DL (7-18); CALCIUM LEVEL 8.9 MG/DL (8.5-10.1); CARBON DIOXIDE LEVEL 27 MEQ/L (21-32); CHLORIDE LEVEL 106 MEQ/L (98-107); CREATININE FOR GFR 0.62 MG/DL (0.55-1.02); GLOMERULAR FILTRATION RATE > 60.0 (>60); GLUCOSE, FASTING 82 MG/DL (70-105); SODIUM LEVEL 142 MEQ/L (136-145); TOTAL PROTEIN 7.3 GM/DL (6.4-8.2)
[2016-04-05] MEDS ORDERED: LIDOCAINE VISCOUS 2% SOLN 15ML UDC As Ordered ONE (11:35)
--- NOTE | 2016-04-05 11:48 | EDDOCDS ---
Physician Documentation [facility] Name: Eulalia Santos Age: 25 yrs Sex: Female : 1990 Arrival Date: 04/05/2016 Time: 09:17 Bed PR Private MD: Osmany Blanco D Disposition: 04/05/16 11:23 Discharged to Home/Self Care. Impression: Acute pharyngitis. - Condition is Stable. - Prescriptions for Clindamycin HCl 300 mg Oral Capsule - take 1 capsule by ORAL route every 6 hours; 40 capsule. Tylenol 325 mg Oral Tablet - take 2 tablet by ORAL route every 6 hours as needed; 1 bottle. Cepacol Sore Throat (salazar- men) - take 1 lozenge by ORAL route every 4-6 hours; 18 lozenge. - Medication Reconciliation, Local Pharmacy Hours form. - Follow up: Private Physician; When: 2 - 3 days; Reason: Recheck today's complaints. Follow up: Emergency Department; When: As soon as possible; Reason: Worsening of conditions. - Problem is new. - Symptoms are unchanged. Historical: - Allergies: Amoxicillin; PENICILLINS; - Home Meds: 1. none - PMHx: none; - PSHx: none; - Social history: Smoking status: Patient uses tobacco products, current every day smoker. No barriers to communication noted, The patient speaks fluent Mongolian, Speaks appropriately for age. - Family history: Not pertinent. - : The pt / caregiver states he / she is not on anticoagulants. Home medication list is obtained from the patient. - Exposure Risk Screening:: None identified. 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 1 in. (154.94 cm); Pain 5/10; 11:42 BP 113 / 71; Pulse 80; Resp 16; Temp 97.5(O); Pulse Ox 100% on R/A; Pain 0/10; sew 09:18 Body Mass Index 25.51 (61.23 kg, 154.94 cm) [facility] MDM: 09:43 Financial registration complete. lg 09:48 [facility] Payment Agreement was scanned into [employer] and attached to record. lg 10:09 Strep Screen, Nursing ordered. jk8 10:10 Monoscreen Ordered. EDMS 10:10 CBC with Diff Ordered. EDMS 10:10 Strep Screen-in lab Ordered. EDMS 10:11 Liver Profile Ordered. EDMS 10:11 BMP Ordered. EDMS 10:41 CBC with Diff Reviewed. jk8 10:54 GATS(NEG STREP SCREEN) ED ONLY Ordered. EDMS 11:20 Liver Profile Reviewed. jk8 11:20 Monoscreen Reviewed. jk8 11:20 Strep Screen-in lab Reviewed. jk8 11:20 BMP Reviewed. jk8 11:31 Lidocaine Viscous Liquid 2 % 15 ml Mucous Membrane in affected area once ordered. jk8 Administered Medications: 11:36 Drug: Lidocaine Viscous 15 ml [Lidocaine Viscous 2 % mucosal solution (15 mL)] Route: jf3 Mucous Membrane; Site: affected area; Signatures: Dispatcher [employer] EDMS Alana Odell, RN RN [facility] Kassandra Laureano, Lawrence Reg Souleymane eMndoza, PA-C PA-C jk8 Francisco Lawton,CHELE RN jf3 The chart was reviewed and I authenticate all verbal orders and agree with the evaluation and treatment provided.Attachments: 09:48 [facility] Payment Agreement lg MTDD
--- NOTE | 2016-04-05 11:48 | EDDOCDS ---
Nurse's Notes [facility] Name: Eulalia Santos Age: 25 yrs Sex: Female : 1990 Arrival Date: 04/05/2016 Time: 09:17 Bed PR Private MD: Osmany Blanco D Diagnosis: Acute pharyngitis Presentation: 04/05 09:24 Presenting complaint: Patient states: LEFT SIDED SORE THROAT AND NECK SWELLING FOR 2 srm DAYS. Risk factors: Stridor is not present. Drooling is not present. Shortness of breath is not present. Cellulitis is not present. Adult Sepsis Screening: The patient does not have new or worsening altered mentation. Patient's respiratory rate is less than 22. Systolic blood pressure is greater than 100. Patient has a qSOFA score of 0- Negative Sepsis Screen. Suicide/Homicide risk assessment- the patient denies having any suicidal and/or homicidal ideations and does not present with any other emotional, behavioral or mental health complaints. Status: Patient is not a information services vice president or dependent. Transition of care: patient was not received from another setting of care. 09:24 Acuity: SMITH Level 4 srm 09:24 Method Of Arrival: Walkin/Carried/Asstd srm Triage Assessment: 09:25 General: Appears in no apparent distress, Behavior is appropriate for age, cooperative. srm Pain: Pain currently is 6 out of 10 on a pain scale. HIV screening NA for this visit Offered previously. EENT: Reports left sided throat pain. 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 none - PMHx: none; - PSHx: none; - Social history: Smoking status: Patient uses tobacco products, current every day smoker. No barriers to communication noted, The patient speaks fluent Maltese, Speaks appropriately for age. - Family history: Not pertinent. - : The pt / caregiver states he / she is not on anticoagulants. Home medication list is obtained from the patient. - Exposure Risk Screening:: None identified. Screenin:32 Screening information is obtained from the patient. Fall risk: No risks identified. kr3 Assistance ADL's: requires no assistance with activities of daily living. Abuse/DV Screen: The patient / caregiver reports he/she is: not in a situation that causes fear, pain or injury. Nutritional screening: No deficits noted. Advance Directives: Currently, there is no health care proxy. home support is adequate. Assessment: 10:32 General: Appears in no apparent distress, comfortable, Behavior is appropriate for age, kr3 cooperative. EENT: Throat is clear. Respiratory: Airway is patent Respiratory effort is even, unlabored. 11:44 General: Appears in no apparent distress, comfortable, Behavior is cooperative. jf3 Neurological: Level of Consciousness is awake, alert, Oriented to person, place, time. Cardiovascular: Capillary refill < 3 seconds Chest pain is denied. Respiratory: Airway is patent Respiratory effort is even, unlabored, Respiratory pattern is regular, symmetrical, Denies shortness of breath. Derm: Skin is pink, warm & dry. Vital Signs: 09:18 BP 113 / 68; Pulse 81; Resp 18; Temp 98.6; Pulse Ox 100% ; Weight 61.23 kg; Height 5 jlf ft. 1 in. (154.94 cm); Pain 5/10; 11:42 BP 113 / 71; Pulse 80; Resp 16; Temp 97.5(O); Pulse Ox 100% on R/A; Pain 0/10; sew 09:18 Body Mass Index 25.51 (61.23 kg, 154.94 cm) [facility] Vitals: 09:18 Log In Time: April 05, 2016 at 09:18. jlf 10:32 Strep Screen is obtained and tested: Negative, a GATSNEG culture is ordered in [facility] kr3 and sent. ED Course: 09:18 Patient visited by Ann Alvarado PCA. jlf 09:18 Osmany Blanco is Private Physician. jlf 09:18 Patient moved to Waiting jlf 09:19 Patient visited by Ann Alvarado PCA. jlf 09:19 Patient moved to Pre RCE jlf 09:24 Triage Initiated srm 09:25 Patient moved to Triage 2 srm 09:32 Souleymane Mendoza PA-C is PHCP. jk8 09:32 Sandra Bingham MD is Attending Physician. jk8 09:32 Patient visited by Souleymane Mendoza PA-C. jk8 09:48 [facility] [place] Payment Agreement was scanned into [employer] and attached to record. lg 10:30 BMP Sent. kr3 10:30 Liver Profile Sent. kr3 10:30 Strep Screen-in lab Sent. kr3 10:30 CBC with Diff Sent. kr3 10:30 Monoscreen Sent. kr3 10:33 The patient / caregiver is instructed regarding the plan of care and ED course. Patient juan miguel has correct armband on for positive identification. 10:33 Patient moved to TR1 kr3 11:24 Patient moved to PR2 / 26 kr3 11:24 GATS(NEG STREP SCREEN) ED ONLY Sent. kr3 11:43 Patient visited by Sandra Mari. sew 11:44 No IV's were initiated during this patient's visit. No procedures done that require jf3 assistance. Administered Medications: 11:36 Drug: Lidocaine Viscous 15 ml [Lidocaine Viscous 2 % mucosal solution (15 mL)] Route: jf3 Mucous Membrane; Site: affected area; Order Results: Lab Order: Monoscreen; SPEC'M 04/05/16 10:29 Test: MONO SCRN; Value: NEGATIVE; Range: NEGATIVE; Status: F Lab Order: CBC with Diff; SPEC'M 04/05/16 10:29 Test: WHITE BLOOD COUNT; Value: 7.6; Range: 4.0-10.0; Units: K/mm3; Status: F Test: RED BLOOD COUNT; Value: 4.77; Range: 4.00-5.40; Units: M/mm3; Status: F Test: HEMOGLOBIN; Value: 13.8; Range: 12.0-16.0; Units: g/dl; Status: F Test: HEMATOCRIT; Value: 41.8; Range: 36.0-47.0; Units: %; Status: F Test: MEAN CORPUSCULAR VOLUME; Value: 87.5; Range: 80.0-96.0; Units: fl; Status: F Test: MEAN CORPUSCULAR HEMOGLOBIN; Value: 29.0; Range: 27.0-33.0; Units: pg; Status: F Test: MEAN CORPUSCULAR HGB CONC; Value: 33.1; Range: 32.0-36.5; Units: g/dl; Status: F Test: RED CELL DISTRIBUTION WIDTH; Value: 14.3; Range: 11.5-14.5; Units: %; Status: F Test: PLATELET COUNT, AUTOMATED; Value: 233; Range: 150-450; Units: k/mm3; Status: F Test: NEUTROPHILS %; Value: 75.3; Range: 36.0-66.0; Abnormal: Above high normal; Units: %; Status: F Test: LYMPH %; Value: 14.6; Range: 24.0-44.0; Abnormal: Below low normal; Units: %; Status: F Test: MONO %; Value: 6.1; Range: 0.0-5.0; Abnormal: Above high normal; Units: %; Status: F Test: EOS %; Value: 2.5; Range: 0.0-3.0; Units: %; Status: F Test: BASO %; Value: 0.4; Range: 0.0-1.0; Units: %; Status: F Test: LARGE UNSTAINED CELL %; Value: 1.1; Range: 0.0-4.0; Units: %; Status: F Test: NEUTROPHILS #; Value: 5.8; Range: 1.8-7.7; Units: K/mm3; Status: F Test: LYMPH #; Value: 1.2; Range: 1.5-6.5; Abnormal: Below low normal; Units: K/mm3; Status: F Test: MONO #; Value: 0.5; Range: 0.0-0.8; Units: K/mm3; Status: F Test: EOS #; Value: 0.2; Range: 0.0-0.50; Units: K/mm3; Status: F Test: BASO #; Value: 0.0; Range: 0.0-0.2; Units: K/mm3; Status: F Test: LARGE UNSTAINED CELL #; Value: 0.1; Range: 0.0-0.4; Units: K/mm3; Status: F Lab Order: Strep Screen-in lab; SPEC'M 04/05/16 10:29 Test: STREP SCREEN by ICA; Value: STREP SCREEN RESULT NEGATIVE; Status: F Lab Order: Liver Profile; SPEC'M 04/05/16 10:29 Test: AST/SGOT; Value: 13; Range: 15-37; Abnormal: Below low normal; Units: U/L; Status: F Test: ALT/SGPT; Value: 27; Range: 12-78; Units: U/L; Status: F Test: ALKALINE PHOSPHATASE; Value: 107; Range: 45-117; Units: U/L; Status: F Test: BILIRUBIN,TOTAL; Value: 0.6; Range: 0.2-1.0; Units: MG/DL; Status: F Test: BILIRUBIN,DIRECT; Value: 0.2; Range: 0.0-0.2; Units: MG/DL; Status: F Test: TOTAL PROTEIN; Value: 7.3; Range: 6.4-8.2; Units: GM/DL; Status: F Test: ALBUMIN; Value: 4.2; Range: 3.2-5.2; Units: GM/DL; Status: F Test: ALBUMIN/GLOBULIN RATIO; Value: 1.35; Range: 1.00-1.93; Status: F Lab Order: [facility]; SPEC'M 04/05/16 10:29 Test: GLUCOSE, FASTING; Value: 82; Range: 70-105; Units: MG/DL; Status: F Test: BLOOD UREA NITROGEN; Value: 12; Range: 7-18; Units: MG/DL; Status: F Test: CREATININE FOR GFR; Value: 0.62; Range: 0.55-1.02; Units: MG/DL; Status: F Test: GLOMERULAR FILTRATION RATE; Value: > 60.0; Range: >60; Status: F Test: SODIUM LEVEL; Value: 142; Range: 136-145; Units: MEQ/L; Status: F Test: POTASSIUM SERUM; Value: 4.0; Range: 3.5-5.1; Units: MEQ/L; Status: F Test: CHLORIDE LEVEL; Value: 106; Range: 98-107; Units: MEQ/L; Status: F Test: CARBON DIOXIDE LEVEL; Value: 27; Range: 21-32; Units: MEQ/L; Status: F Test: ANION GAP; Value: 9; Range: 8-16; Units: MEQ/L; Status: F Test: CALCIUM LEVEL; Value: 8.9; Range: 8.5-10.1; Units: MG/DL; Status: F Test Note: ; Units are mL/min/1.73 m2 Chronic Kidney Disease Staging per NKF: Stage I & II GFR >=60 Normal to Mildly Decreased Stage III GFR 30-59 Moderately Decreased Stage IV GFR 15-29 Severely Decreased Stage V GFR <15 Very Little GFR Left ESRD GFR <15 on SANITATION LABORER Outcome: 11:23 Discharge ordered by Provider. jk8 11:46 Discharge Assessment: Patient awake, alert and oriented x 3. No cognitive and/or jf3 functional deficits noted. Patient verbalized understanding of disposition instructions. patient administered narcotics - no. The following High Risk Discharge criteria are identified: None. Discharged to home ambulatory, with friend. Condition: good. Discharge instructions given to patient, Instructed on discharge instructions, follow up and referral plans. medication usage, Demonstrated understanding of instructions, medications, Pt was receptive of discharge instructions/ teaching. No special radiology studies were completed. Property :Personal belongings accompany Pt. 11:47 Patient left the ED. jf3 Signatures: Alana Odell, RN RN srm Kassandra Laureano, Lawrence Reg lg Selena Vargas,RN RN kr3 Kamaljit, Ann Cabrales, EXPLORATION ENGINEER EXPLORATION ENGINEER mikef Souleymane Mendoza, PA-Joy PA-Joy jkFrancisco Knowles,RN RN jf3 MTDD
--- NOTE | 2016-04-07 12:48 | EDDOCDS ---
Nurse's Notes [facility] Name: Eulalia Santos Age: 25 yrs Sex: Female : 1990 Arrival Date: 04/05/2016 Time: 09:17 Bed PR Private MD: Osmany Blanco D Diagnosis: Acute pharyngitis Presentation: 04/05 09:24 Presenting complaint: Patient states: LEFT SIDED SORE THROAT AND NECK SWELLING FOR 2 srm DAYS. Risk factors: Stridor is not present. Drooling is not present. Shortness of breath is not present. Cellulitis is not present. Adult Sepsis Screening: The patient does not have new or worsening altered mentation. Patient's respiratory rate is less than 22. Systolic blood pressure is greater than 100. Patient has a qSOFA score of 0- Negative Sepsis Screen. Suicide/Homicide risk assessment- the patient denies having any suicidal and/or homicidal ideations and does not present with any other emotional, behavioral or mental health complaints. Status: Patient is not a marketing services manager or dependent. Transition of care: patient was not received from another setting of care. 09:24 Acuity: SMITH Level 4 srm 09:24 Method Of Arrival: Walkin/Carried/Asstd srm Triage Assessment: 09:25 General: Appears in no apparent distress, Behavior is appropriate for age, cooperative. srm Pain: Pain currently is 6 out of 10 on a pain scale. HIV screening NA for this visit Offered previously. EENT: Reports left sided throat pain. 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 none - PMHx: none; - PSHx: none; - Social history: Smoking status: Patient uses tobacco products, current every day smoker. No barriers to communication noted, The patient speaks fluent Divehi, Speaks appropriately for age. - Family history: Not pertinent. - : The pt / caregiver states he / she is not on anticoagulants. Home medication list is obtained from the patient. - Exposure Risk Screening:: None identified. Screenin:32 Screening information is obtained from the patient. Fall risk: No risks identified. kr3 Assistance ADL's: requires no assistance with activities of daily living. Abuse/DV Screen: The patient / caregiver reports he/she is: not in a situation that causes fear, pain or injury. Nutritional screening: No deficits noted. Advance Directives: Currently, there is no health care proxy. home support is adequate. Assessment: 10:32 General: Appears in no apparent distress, comfortable, Behavior is appropriate for age, kr3 cooperative. EENT: Throat is clear. Respiratory: Airway is patent Respiratory effort is even, unlabored. 11:44 General: Appears in no apparent distress, comfortable, Behavior is cooperative. jf3 Neurological: Level of Consciousness is awake, alert, Oriented to person, place, time. Cardiovascular: Capillary refill < 3 seconds Chest pain is denied. Respiratory: Airway is patent Respiratory effort is even, unlabored, Respiratory pattern is regular, symmetrical, Denies shortness of breath. Derm: Skin is pink, warm & dry. Vital Signs: 09:18 BP 113 / 68; Pulse 81; Resp 18; Temp 98.6; Pulse Ox 100% ; Weight 61.23 kg; Height 5 jlf ft. 1 in. (154.94 cm); Pain 5/10; 11:42 BP 113 / 71; Pulse 80; Resp 16; Temp 97.5(O); Pulse Ox 100% on R/A; Pain 0/10; sew 09:18 Body Mass Index 25.51 (61.23 kg, 154.94 cm) [facility] Vitals: 09:18 Log In Time: April 05, 2016 at 09:18. jlf 10:32 Strep Screen is obtained and tested: Negative, a GATSNEG culture is ordered in [facility] kr3 and sent. ED Course: 09:18 Patient visited by Ann Alvarado PCA. jlf 09:18 Osmany Blanco is Private Physician. jlf 09:18 Patient moved to Waiting jlf 09:19 Patient visited by Ann Alvarado PCA. jlf 09:19 Patient moved to Pre RCE jlf 09:24 Triage Initiated srm 09:25 Patient moved to Triage 2 srm 09:32 Souleymane Mendoza PA-C is PHCP. jk8 09:32 Sandra Bingham MD is Attending Physician. jk8 09:32 Patient visited by Souleymane Mendoza PA-C. jk8 09:48 [facility] Payment Agreement was scanned into [employer] and attached to record. lg 10:30 BMP Sent. kr3 10:30 Liver Profile Sent. kr3 10:30 Strep Screen-in lab Sent. kr3 10:30 CBC with Diff Sent. kr3 10:30 Monoscreen Sent. kr3 10:33 The patient / caregiver is instructed regarding the plan of care and ED course. Patient abel3 has correct armband on for positive identification. 10:33 Patient moved to TR1 kr3 11:24 Patient moved to PR2 / 26 kr3 11:24 GATS(NEG STREP SCREEN) ED ONLY Sent. kr3 11:43 Patient visited by Sandra Mari. sew 11:44 No IV's were initiated during this patient's visit. No procedures done that require jf3 assistance. 14:46 T-Sheet-- Draft Copy was scanned into [employer] and attached to record. klr Administered Medications: 11:36 Drug: Lidocaine Viscous 15 ml [Lidocaine Viscous 2 % mucosal solution (15 mL)] Route: jf3 Mucous Membrane; Site: affected area; Order Results: Lab Order: Monoscreen; SPEC'M 04/05/16 10:29 Test: MONO SCRN; Value: NEGATIVE; Range: NEGATIVE; Status: F Lab Order: CBC with Diff; SPEC'M 04/05/16 10:29 Test: WHITE BLOOD COUNT; Value: 7.6; Range: 4.0-10.0; Units: K/mm3; Status: F Test: RED BLOOD COUNT; Value: 4.77; Range: 4.00-5.40; Units: M/mm3; Status: F Test: HEMOGLOBIN; Value: 13.8; Range: 12.0-16.0; Units: g/dl; Status: F Test: HEMATOCRIT; Value: 41.8; Range: 36.0-47.0; Units: %; Status: F Test: MEAN CORPUSCULAR VOLUME; Value: 87.5; Range: 80.0-96.0; Units: fl; Status: F Test: MEAN CORPUSCULAR HEMOGLOBIN; Value: 29.0; Range: 27.0-33.0; Units: pg; Status: F Test: MEAN CORPUSCULAR HGB CONC; Value: 33.1; Range: 32.0-36.5; Units: g/dl; Status: F Test: RED CELL DISTRIBUTION WIDTH; Value: 14.3; Range: 11.5-14.5; Units: %; Status: F Test: PLATELET COUNT, AUTOMATED; Value: 233; Range: 150-450; Units: k/mm3; Status: F Test: NEUTROPHILS %; Value: 75.3; Range: 36.0-66.0; Abnormal: Above high normal; Units: %; Status: F Test: LYMPH %; Value: 14.6; Range: 24.0-44.0; Abnormal: Below low normal; Units: %; Status: F Test: MONO %; Value: 6.1; Range: 0.0-5.0; Abnormal: Above high normal; Units: %; Status: F Test: EOS %; Value: 2.5; Range: 0.0-3.0; Units: %; Status: F Test: BASO %; Value: 0.4; Range: 0.0-1.0; Units: %; Status: F Test: LARGE UNSTAINED CELL %; Value: 1.1; Range: 0.0-4.0; Units: %; Status: F Test: NEUTROPHILS #; Value: 5.8; Range: 1.8-7.7; Units: K/mm3; Status: F Test: LYMPH #; Value: 1.2; Range: 1.5-6.5; Abnormal: Below low normal; Units: K/mm3; Status: F Test: MONO #; Value: 0.5; Range: 0.0-0.8; Units: K/mm3; Status: F Test: EOS #; Value: 0.2; Range: 0.0-0.50; Units: K/mm3; Status: F Test: BASO #; Value: 0.0; Range: 0.0-0.2; Units: K/mm3; Status: F Test: LARGE UNSTAINED CELL #; Value: 0.1; Range: 0.0-0.4; Units: K/mm3; Status: F Lab Order: Strep Screen-in lab; SPEC'M 04/05/16 10:29 Test: STREP SCREEN by ICA; Value: STREP SCREEN RESULT NEGATIVE; Status: F Lab Order: Liver Profile; SPEC'M 04/05/16 10:29 Test: AST/SGOT; Value: 13; Range: 15-37; Abnormal: Below low normal; Units: U/L; Status: F Test: ALT/SGPT; Value: 27; Range: 12-78; Units: U/L; Status: F Test: ALKALINE PHOSPHATASE; Value: 107; Range: 45-117; Units: U/L; Status: F Test: BILIRUBIN,TOTAL; Value: 0.6; Range: 0.2-1.0; Units: MG/DL; Status: F Test: BILIRUBIN,DIRECT; Value: 0.2; Range: 0.0-0.2; Units: MG/DL; Status: F Test: TOTAL PROTEIN; Value: 7.3; Range: 6.4-8.2; Units: GM/DL; Status: F Test: ALBUMIN; Value: 4.2; Range: 3.2-5.2; Units: GM/DL; Status: F Test: ALBUMIN/GLOBULIN RATIO; Value: 1.35; Range: 1.00-1.93; Status: F Lab Order: [facility] 04/05/16 10:29 Test: GLUCOSE, FASTING; Value: 82; Range: 70-105; Units: MG/DL; Status: F Test: BLOOD UREA NITROGEN; Value: 12; Range: 7-18; Units: MG/DL; Status: F Test: CREATININE FOR GFR; Value: 0.62; Range: 0.55-1.02; Units: MG/DL; Status: F Test: GLOMERULAR FILTRATION RATE; Value: > 60.0; Range: >60; Status: F Test: SODIUM LEVEL; Value: 142; Range: 136-145; Units: MEQ/L; Status: F Test: POTASSIUM SERUM; Value: 4.0; Range: 3.5-5.1; Units: MEQ/L; Status: F Test: CHLORIDE LEVEL; Value: 106; Range: 98-107; Units: MEQ/L; Status: F Test: CARBON DIOXIDE LEVEL; Value: 27; Range: 21-32; Units: MEQ/L; Status: F Test: ANION GAP; Value: 9; Range: 8-16; Units: MEQ/L; Status: F Test: CALCIUM LEVEL; Value: 8.9; Range: 8.5-10.1; Units: MG/DL; Status: F Test Note: ; Units are mL/min/1.73 m2 Chronic Kidney Disease Staging per NKF: Stage I & II GFR >=60 Normal to Mildly Decreased Stage III GFR 30-59 Moderately Decreased Stage IV GFR 15-29 Severely Decreased Stage V GFR <15 Very Little GFR Left ESRD GFR <15 on SCREW MACHINE OPERATOR SINGLE SPINDLE Lab Order: GATS(NEG STREP SCREEN) ED ONLY; SPEC'M 04/05/16 10:29 Test: GATS CULTURE (NEG STREP SCR); Value: GATS RESULT NEGATIVE FOR STREP PYOGENES (GROUP A); Status: F Test: GATS CULTURE (NEG STREP SCR); Value: <EXTERNAL COMMENT eCWMed> FULL REPORT IN LAB NOTES (eCW and Medent).; Status: F Outcome: 11:23 Discharge ordered by Provider. jk8 11:46 Discharge Assessment: Patient awake, alert and oriented x 3. No cognitive and/or jf3 functional deficits noted. Patient verbalized understanding of disposition instructions. patient administered narcotics - no. The following High Risk Discharge criteria are identified: None. Discharged to home ambulatory, with friend. Condition: good. Discharge instructions given to patient, Instructed on discharge instructions, follow up and referral plans. medication usage, Demonstrated understanding of instructions, medications, Pt was receptive of discharge instructions/ teaching. No special radiology studies were completed. Property :Personal belongings accompany Pt. 11:47 Patient left the ED. jf3 Signatures: Alana Odell, RN RN Kassandra Rothman Reg Reg lg Robie, Kathleen,RN RN abel3 Sandra Mari Jordain, JEWELRY MECHANIC JEWELRY MECHANIC jlf Souleymane Mendoza, PA-C PA-C jk8 Francisco Lawton RN RN jf3 Renetta Herrera Chart Complete MTDD
--- NOTE | 2016-04-07 12:48 | EDDOCDS ---
Physician Documentation [facility] Name: Eulalia Santos Age: 25 yrs Sex: Female : 1990 Arrival Date: 04/05/2016 Time: 09:17 Bed PR Private MD: Osmany Blanco D Disposition: 04/05/16 11:23 Discharged to Home/Self Care. Impression: Acute pharyngitis. - Condition is Stable. - Prescriptions for Clindamycin HCl 300 mg Oral Capsule - take 1 capsule by ORAL route every 6 hours; 40 capsule. Tylenol 325 mg Oral Tablet - take 2 tablet by ORAL route every 6 hours as needed; 1 bottle. Cepacol Sore Throat (salazar- men) - take 1 lozenge by ORAL route every 4-6 hours; 18 lozenge. - Medication Reconciliation, Local Pharmacy Hours form. - Follow up: Private Physician; When: 2 - 3 days; Reason: Recheck today's complaints. Follow up: Emergency Department; When: As soon as possible; Reason: Worsening of conditions. - Problem is new. - Symptoms are unchanged. Historical: - Allergies: Amoxicillin; PENICILLINS; - Home Meds: 1. none - PMHx: none; - PSHx: none; - Social history: Smoking status: Patient uses tobacco products, current every day smoker. No barriers to communication noted, The patient speaks fluent Tanzanian, Speaks appropriately for age. - Family history: Not pertinent. - : The pt / caregiver states he / she is not on anticoagulants. Home medication list is obtained from the patient. - Exposure Risk Screening:: None identified. 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 1 in. (154.94 cm); Pain 5/10; 11:42 BP 113 / 71; Pulse 80; Resp 16; Temp 97.5(O); Pulse Ox 100% on R/A; Pain 0/10; sew 09:18 Body Mass Index 25.51 (61.23 kg, 154.94 cm) [facility] MDM: 09:43 Financial registration complete. lg 09:48 [facility] Payment Agreement was scanned into [employer] and attached to record. lg 10:09 Strep Screen, Nursing ordered. jk8 10:10 Monoscreen Ordered. EDMS 10:10 CBC with Diff Ordered. EDMS 10:10 Strep Screen-in lab Ordered. EDMS 10:11 Liver Profile Ordered. EDMS 10:11 BMP Ordered. EDMS 10:41 CBC with Diff Reviewed. jk8 10:54 GATS(NEG STREP SCREEN) ED ONLY Ordered. EDMS 11:20 Liver Profile Reviewed. jk8 11:20 Monoscreen Reviewed. jk8 11:20 Strep Screen-in lab Reviewed. jk8 11:20 BMP Reviewed. jk8 11:31 Lidocaine Viscous Liquid 2 % 15 ml Mucous Membrane in affected area once ordered. jk8 14:46 T-Sheet-- Draft Copy was scanned into Sp[employer] and attached to record. klr Administered Medications: 11:36 Drug: Lidocaine Viscous 15 ml [Lidocaine Viscous 2 % mucosal solution (15 mL)] Route: jf3 Mucous Membrane; Site: affected area; Signatures: Dispatcher [employer] EDMS Alana Odell, RN RN srm Kassandra Laureano, Lawrence Reg Souleymane Mendoza, PATrevonC PAJunior jk8 Francisco Lawton RN RN jf3 Renetta Herrera The chart was reviewed and I authenticate all verbal orders and agree with the evaluation and treatment provided.Attachments: 09:48 [facility] Payment Agreement lg 14:46 T-Sheet-- Draft Copy klr Chart Complete MTDD
--- NOTE | 2016-04-07 12:48 | EDDOCDS ---
Physician Documentation [facility] Name: Eulalia Santos Age: 25 yrs Sex: Female : 1990 Arrival Date: 04/05/2016 Time: 09:17 Bed PR Private MD: Osmany Blanco D Disposition: 04/05/16 11:23 Discharged to Home/Self Care. Impression: Acute pharyngitis. - Condition is Stable. - Prescriptions for Clindamycin HCl 300 mg Oral Capsule - take 1 capsule by ORAL route every 6 hours; 40 capsule. Tylenol 325 mg Oral Tablet - take 2 tablet by ORAL route every 6 hours as needed; 1 bottle. Cepacol Sore Throat (salazar- men) - take 1 lozenge by ORAL route every 4-6 hours; 18 lozenge. - Medication Reconciliation, Local Pharmacy Hours form. - Follow up: Private Physician; When: 2 - 3 days; Reason: Recheck today's complaints. Follow up: Emergency Department; When: As soon as possible; Reason: Worsening of conditions. - Problem is new. - Symptoms are unchanged. Historical: - Allergies: Amoxicillin; PENICILLINS; - Home Meds: 1. none - PMHx: none; - PSHx: none; - Social history: Smoking status: Patient uses tobacco products, current every day smoker. No barriers to communication noted, The patient speaks fluent Somali, Speaks appropriately for age. - Family history: Not pertinent. - : The pt / caregiver states he / she is not on anticoagulants. Home medication list is obtained from the patient. - Exposure Risk Screening:: None identified. 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 1 in. (154.94 cm); Pain 5/10; 11:42 BP 113 / 71; Pulse 80; Resp 16; Temp 97.5(O); Pulse Ox 100% on R/A; Pain 0/10; sew 09:18 Body Mass Index 25.51 (61.23 kg, 154.94 cm) [facility] MDM: 09:43 Financial registration complete. lg 09:48 [facility] Payment Agreement was scanned into [employer] and attached to record. lg 10:09 Strep Screen, Nursing ordered. jk8 10:10 Monoscreen Ordered. EDMS 10:10 CBC with Diff Ordered. EDMS 10:10 Strep Screen-in lab Ordered. EDMS 10:11 Liver Profile Ordered. EDMS 10:11 BMP Ordered. EDMS 10:41 CBC with Diff Reviewed. jk8 10:54 GATS(NEG STREP SCREEN) ED ONLY Ordered. EDMS 11:20 Liver Profile Reviewed. jk8 11:20 Monoscreen Reviewed. jk8 11:20 Strep Screen-in lab Reviewed. jk8 11:20 BMP Reviewed. jk8 11:31 Lidocaine Viscous Liquid 2 % 15 ml Mucous Membrane in affected area once ordered. jk8 14:46 T-Sheet-- Draft Copy was scanned into [employer] and attached to record. klr Administered Medications: 11:36 Drug: Lidocaine Viscous 15 ml [Lidocaine Viscous 2 % mucosal solution (15 mL)] Route: jf3 Mucous Membrane; Site: affected area; Signatures: Dispatcher [employer] EDMS Alana Odell, RN RN srm Kassandra Laureano, Lawrence Reg Souleymane Mendoza, PATrevonC PAJunior jk8 Francisco Lawton RN RN jf3 Renetta Herrera The chart was reviewed and I authenticate all verbal orders and agree with the evaluation and treatment provided.Attachments: 09:48 [facility] Payment Agreement lg 14:46 T-Sheet-- Draft Copy klr Chart Complete MTDD
== END 2016-04-05 11:47 | disposition home or self-care (01) ==
LOC: M ED 09:17
DX: J02.9 Acute pharyngitis, unspecified (principal); F17.200 Nicotine dependence, unspecified, uncomplicated; Z88.0 Allergy status to penicillin

== ENCOUNTER 2016-04-18 18:58 | Emergency (ER) | payer OTHER ==
[2016-04-18] MEDS ORDERED: KETOROLAC 30 MG/ML VIAL (J1885) As Ordered ONE (19:23)
--- NOTE | 2016-04-18 20:16 | REP ---
Clinical: Radiculopathy . Technique: Axial noncontrast images from the skull base to the thoracic inlet with coronal and sagittal re-formations Findings: Normal alignment is maintained. Straightening of normal lordosis may be secondary to positioning versus pain/spasm. Cervical vertebral bodies including transverse processes and spinous processes are intact and there is no evidence for acute fracture / compression injury or subluxation. Spinal canal is patent. Posterior elements are intact. Paravertebral soft tissues are normal. Impression: Essentially normal noncontrast CT of the cervical spine. If the patient remains symptomatic consider MRI for more definitive evaluation of the spinal canal contents and intervertebral discs. Signed by Mani Greer MD 04/18/2016 08:08 P
--- NOTE | 2016-04-18 21:11 | EDDOCDS ---
Physician Documentation [facility] Name: Eulalia Santos Age: 25 yrs Sex: Female : 1990 Arrival Date: 04/18/2016 Time: 18:58 Bed I1 / M1 Private MD: Osmany Blanco D Disposition: 04/18/16 20:47 Discharged to Home/Self Care. Impression: Cervical disc disorder with radiculopathy, unspecified cervical region - AFFECTING LEFT SIDE, Strain of muscle, fascia and tendon at neck level. - Condition is Stable. - Discharge Instructions: Cervical Radiculopathy. - Prescriptions for Naprosyn 500 mg Oral Tablet - take 1 tablet by ORAL route every 12 hours As needed take with food; 30 tablet. Valium 5 mg Oral Tablet - take 1 tablet by ORAL route at bedtime As needed; 12 tablet. - Medication Reconciliation, Work Release Form - 3 day, Local Pharmacy Hours form. - Follow up: Emergency Department; When: As needed; Reason: Worsening of conditions. Follow up: Private Physician; When: 2 - 3 days; Reason: Wound/Symptom Recheck, Recheck today's complaints, Continuance of care. - Problem is new. - Symptoms have improved. - Notes: THERE WAS NO ABNORMALITY ON YOUR XRAYS OR CT SCAN TODAY. PLEASE FOLLOW UP WITH YOUR PRIMARY CARE PROVIDER IN THE NEXT WEEK TO RECHECK YOUR SYMPTOMS. ANY WORSENING SYMPTOMS, PLEASE RETURN TO THE ER. Historical: - Allergies: Amoxicillin (seizures); PENICILLINS (seizures); - Home Meds: 1. none - PMHx: none; - PSHx: none; - Social history: Smoking status: Patient uses tobacco products, current every day smoker. No barriers to communication noted, The patient speaks fluent Croatian, Speaks appropriately for age. - Family history: Not pertinent. - : The pt / caregiver states he / she is not on anticoagulants. Home medication list is obtained from the patient. - Exposure Risk Screening:: None identified. 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 4 in. (162.56 cm) (R); Pain 10/10; 21:08 BP 116 / 67; Pulse 71; Resp 16; Temp 97.2; Pulse Ox 97% on R/A; Pain 5/10; ld5 19:00 Body Mass Index 21.46 (56.70 kg, 162.56 cm) gr2 MDM: 19:18 Diazepam 5 mg IM once ordered. dt4 19:18 ketorolac 60 mg IM once ordered. dt4 19:19 CT Spine,Cervical W/o Contrast Ordered. EDMS 19:20 Chest, 2 View (pa\E\lat) Ordered. EDMS 19:20 Shoulder, Complete Ordered. EDMS 19:59 ED course: AT FIRST ENCOUNTER WITH PT, PT LAYING ON RIGHT SIDE ON BED, CRYING, dt4 HYPERVENTILATING, KEEPING EYES CLOSED, ANXIOUS. CHECKED ON PT AT THIS TIME, PT LAYING SUPINE WITH LEGS CROSSED ON EXAM BED, LOOKING AT CELL PHONE, NOT CRYING. STATES PAIN HAS IMPROVED WITH MEDICATIONS. . 20:02 Financial registration complete. 20:41 [facility] Payment Agreement was scanned into [employer] and attached to record. Administered Medications: 19:34 Drug: Diazepam 5 mg [diazepam 5 mg/mL injection syringe (1 mL)] Route: IM; Site: right jo3 gluteus; 19:34 Drug: ketorolac 60 mg [ketorolac 30 mg/mL (1 mL) injection solution (2 mL)] Route: IM; jo3 Site: left gluteus; Signatures: Dispatcher MedHost EDGA Marlen Mtz, Reg Reg Kathleen Biggs RN RN jo3 Irena VelazquezRN RN thomas5 Shelly NegronRN RN Carmen Ureña, ANIYA PATrevonC dt4 The chart was reviewed and I authenticate all verbal orders and agree with the evaluation and treatment provided.Attachments: 20:41 [facility] Payment Agreement MTDD
--- NOTE | 2016-04-18 21:11 | EDDOCDS ---
Nurse's Notes [facility] Name: Eulalia Santos Age: 25 yrs Sex: Female : 1990 Arrival Date: 04/18/2016 Time: 18:58 Bed I1 / M1 Private MD: Osmany Blanco D Diagnosis: Cervical disc disorder with radiculopathy, unspecified cervical region-AFFECTING LEFT SIDE;Strain of muscle, fascia and tendon at neck level Presentation: 04/18 19:04 Presenting complaint: Patient states: thinks she dislocated her left shoulder and she dsf is SOB and dizzy. pt thinks her work out brace was to tight. Adult Sepsis Screening: The patient does not have new or worsening altered mentation. Patient's respiratory rate is less than 22. Systolic blood pressure is greater than 100. Patient has a qSOFA score of 0- Negative Sepsis Screen. Suicide/Homicide risk assessment- the patient denies having any suicidal and/or homicidal ideations and does not present with any other emotional, behavioral or mental health complaints. 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 Transition of care: patient was not received from another setting of care. 19:04 Acuity: SMITH Level 3 dsf 19:04 Method Of Arrival: Walkin/Carried/Asstd dsf Triage Assessment: 19:06 General: Appears distressed, uncomfortable, Behavior is appropriate for age. Pain: dsf Location: left shoulder blade Pain currently is 9 out of 10 on a pain scale. Quality of pain is described as sharp, tingling. HIV screening NA for this visit Offered previously. Respiratory: Onset: The symptoms/episode began/occurred today, Airway is patent Respiratory effort is unlabored, Respiratory pattern is tachypnea. Derm: Skin is pink, warm & dry. Musculoskeletal: Reports pain in left shoulder blade unable to move left arm. left fingers feel tingling. 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 none - PMHx: none; - PSHx: none; - Social history: Smoking status: Patient uses tobacco products, current every day smoker. No barriers to communication noted, The patient speaks fluent Faroese, Speaks appropriately for age. - Family history: Not pertinent. - : The pt / caregiver states he / she is not on anticoagulants. Home medication list is obtained from the patient. - Exposure Risk Screening:: None identified. Screenin:51 Screening information is obtained from the patient. Fall risk: No risks identified. jo3 Assistance ADL's: requires no assistance with activities of daily living. Abuse/DV Screen: The patient / caregiver reports he/she is: not in a situation that causes fear, pain or injury. Nutritional screening: No deficits noted. Advance Directives: There is no active DNR order. home support is adequate. Assessment: 19:51 General: Appears in no apparent distress, Behavior is cooperative, flat. Neurological: jo3 Level of Consciousness is awake, alert, Oriented to person, place, time. Cardiovascular: No deficits noted. Respiratory: Airway is patent Respiratory effort is even, unlabored. Derm: Skin is pink, warm & dry. Musculoskeletal: Reports pain in left shoulder. 21:08 General: Appears in no apparent distress, Behavior is cooperative. Pain: Pain currently ld5 is 5 out of 10 on a pain scale. Neurological: Level of Consciousness is awake, alert. Respiratory: Airway is patent Respiratory effort is even, unlabored. Vital Signs: 19:00 BP 127 / 74; Pulse 72; Resp 18 S; Temp 96.9(O); Pulse Ox 97% on R/A; Weight 56.7 kg gr2 (R); Height 5 ft. 4 in. (162.56 cm) (R); Pain 10/10; 21:08 BP 116 / 67; Pulse 71; Resp 16; Temp 97.2; Pulse Ox 97% on R/A; Pain 5/10; ld5 19:00 Body Mass Index 21.46 (56.70 kg, 162.56 cm) gr2 Vitals: 19:00 Log In Time: April 18, 2016 at 19:00. gr2 ED Course: 19:00 Patient visited by Cody Otoole. gr2 19:00 Osmany Blanco is Private Physician. gr2 19:00 Patient moved to Waiting gr2 19:02 Patient visited by Cody Otoole. gr2 19:02 Patient moved to Pre RCE gr2 19:05 Triage Initiated dsf 19:13 [facility] dt4 19:13 Araceli Wright MD is Attending Physician. dt4 19:13 Patient visited by Carmen Temple PA-C. dt4 19:13 Patient moved to I1 / M1 dt4 19:50 Patient visited by Kathleen Biggs RN. jo3 19:51 The patient / caregiver is instructed regarding the plan of care and ED course. jo3 19:51 No IV's were initiated during this patient's visit. No procedures done that require jo3 assistance. 19:53 Patient visited by Kathleen Biggs RN. jo3 19:59 Patient visited by Carmen Temple PA-C. dt4 20:41 [facility] Payment Agreement was scanned into [employer] and attached to record. gb 21:06 CT Spine,Cervical W/o Contrast Returned. EDMS 21:10 Patient visited by Irena Velazquez RN. ld5 Administered Medications: 19:34 Drug: Diazepam 5 mg [diazepam 5 mg/mL injection syringe (1 mL)] Route: IM; Site: right jo3 gluteus; 19:34 Drug: ketorolac 60 mg [ketorolac 30 mg/mL (1 mL) injection solution (2 mL)] Route: IM; jo3 Site: left gluteus; Order Results: Radiology Order: CT Spine,Cervical W/o Contrast Test: CT Spine,Cervical W/o Contrast REASON FOR EXAMINATION: LEFT SCAPULAR PAIN, RADICULOPATHY; Clinical: Radiculopathy .; ; Technique: Axial noncontrast images from the skull base to the thoracic inlet; with coronal and sagittal re-formations; ; Findings:; Normal alignment is maintained. Straightening of normal lordosis may be; secondary to positioning versus pain/spasm. Cervical vertebral bodies including; transverse processes and spinous processes are intact and there is no evidence; for acute fracture / compression injury or subluxation. Spinal canal is patent.; Posterior elements are intact. Paravertebral soft tissues are normal.; ; Impression:; Essentially normal noncontrast CT of the cervical spine. If the patient remains; symptomatic consider MRI for more definitive evaluation of the spinal canal; contents and intervertebral discs.; ; ; Signed by; Mani Greer MD 04/18/2016 08:08 P; Outcome: 20:47 Discharge ordered by Provider. dt4 21:08 Discharge Assessment: Patient awake, alert and oriented x 3. No cognitive and/or ld5 functional deficits noted. Patient verbalized understanding of disposition instructions. patient administered narcotics - no. The following High Risk Discharge criteria are identified: None. Discharged to home ambulatory, with significant other. Condition: stable. Discharge instructions given to patient, Instructed on discharge instructions, follow up and referral plans. medication usage, no driving heavy equipment, Demonstrated understanding of instructions, medications, Pt was receptive of discharge instructions/ teaching. Prescriptions given X 2, Work note provided to patient. CT Study completed. Property :Personal belongings accompany Pt. 21:10 Patient left the ED. ld5 Signatures: Dispatcher [employer] EDMS Marlen Mtz, Reg Reg Kathleen DixonRN RN ernestine3 Irena Velazquez RN RN ld5 Shelly Negron,CHELE RN Cody Rosas gr2 Carmen Temple, ANIYA KWAN dt4 SONAL
--- NOTE | 2016-04-19 08:43 | REP ---
Clinical: Left scapular pain . Technique: Internal rotation, external rotation, and Y view left shoulder . Findings: No acute fracture or dislocation. The acromioclavicular and glenohumeral joints are intact. No periarticular calcifications or degenerative changes are appreciated. Sub acromial space is normal. Surrounding soft tissues are unremarkable. Impression: Normal left shoulder radiographs. Signed by Mani Greer MD 04/19/2016 08:35 A
--- NOTE | 2016-04-19 08:43 | REP ---
Clinical: Shortness of breath and left scapular pain . Comparison: None . Technique: PA and lateral. Findings: The mediastinum and cardiac silhouette are normal. The lung major are clear and without acute consolidation, effusion, or pneumothorax. The skeletal structures are intact and normal. Impression: 1. No acute cardiopulmonary process. Signed by Mani Greer MD 04/19/2016 08:34 A
--- NOTE | 2016-04-20 22:10 | EDDOCDS ---
Physician Documentation [facility] Name: Eulalia Santos Age: 25 yrs Sex: Female : 1990 Arrival Date: 04/18/2016 Time: 18:58 Bed I1 / M1 Private MD: Osmany Blanco D Disposition: 04/18/16 20:47 Discharged to Home/Self Care. Impression: Cervical disc disorder with radiculopathy, unspecified cervical region - AFFECTING LEFT SIDE, Strain of muscle, fascia and tendon at neck level. - Condition is Stable. - Discharge Instructions: Cervical Radiculopathy. - Prescriptions for Naprosyn 500 mg Oral Tablet - take 1 tablet by ORAL route every 12 hours As needed take with food; 30 tablet. Valium 5 mg Oral Tablet - take 1 tablet by ORAL route at bedtime As needed; 12 tablet. - Medication Reconciliation, Work Release Form - 3 day, Local Pharmacy Hours form. - Follow up: Emergency Department; When: As needed; Reason: Worsening of conditions. Follow up: Private Physician; When: 2 - 3 days; Reason: Wound/Symptom Recheck, Recheck today's complaints, Continuance of care. - Problem is new. - Symptoms have improved. - Notes: THERE WAS NO ABNORMALITY ON YOUR XRAYS OR CT SCAN TODAY. PLEASE FOLLOW UP WITH YOUR PRIMARY CARE PROVIDER IN THE NEXT WEEK TO RECHECK YOUR SYMPTOMS. ANY WORSENING SYMPTOMS, PLEASE RETURN TO THE ER. Historical: - Allergies: Amoxicillin (seizures); PENICILLINS (seizures); - Home Meds: 1. none - PMHx: none; - PSHx: none; - Social history: Smoking status: Patient uses tobacco products, current every day smoker. No barriers to communication noted, The patient speaks fluent Libyan, Speaks appropriately for age. - Family history: Not pertinent. - : The pt / caregiver states he / she is not on anticoagulants. Home medication list is obtained from the patient. - Exposure Risk Screening:: None identified. 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 4 in. (162.56 cm) (R); Pain 10/10; 21:08 BP 116 / 67; Pulse 71; Resp 16; Temp 97.2; Pulse Ox 97% on R/A; Pain 5/10; ld5 19:00 Body Mass Index 21.46 (56.70 kg, 162.56 cm) gr2 MDM: 19:18 Diazepam 5 mg IM once ordered. dt4 19:18 ketorolac 60 mg IM once ordered. dt4 19:19 CT Spine,Cervical W/o Contrast Ordered. EDMS 19:20 Chest, 2 View (pa\E\lat) Ordered. EDMS 19:20 Shoulder, Complete Ordered. EDMS 19:59 ED course: AT FIRST ENCOUNTER WITH PT, PT LAYING ON RIGHT SIDE ON BED, CRYING, dt4 HYPERVENTILATING, KEEPING EYES CLOSED, ANXIOUS. CHECKED ON PT AT THIS TIME, PT LAYING SUPINE WITH LEGS CROSSED ON EXAM BED, LOOKING AT CELL PHONE, NOT CRYING. STATES PAIN HAS IMPROVED WITH MEDICATIONS. . 20:02 Financial registration complete. 20:41 [facility] Payment Agreement was scanned into [employer] and attached to record. gb 21:13 T-Sheet-- Draft Copy was scanned into [employer] and attached to record. klr Administered Medications: 19:34 Drug: Diazepam 5 mg [diazepam 5 mg/mL injection syringe (1 mL)] Route: IM; Site: right jo3 gluteus; 19:34 Drug: ketorolac 60 mg [ketorolac 30 mg/mL (1 mL) injection solution (2 mL)] Route: IM; jo3 Site: left gluteus; Signatures: Dispatcher [employer] EDMS Marlen Mtz, Reg Reg Kathleen Biggs RN RN jo3 Irena Velazquez RN RN thomas5 Shelly NegronRN RN Carmen Ureña PA-C PA-C dt4 Redder, Kathie klr The chart was reviewed and I authenticate all verbal orders and agree with the evaluation and treatment provided.Attachments: 20:41 [facility] Payment Agreement gb 21:13 T-Sheet-- Draft Copy klr Chart Complete MTDD
--- NOTE | 2016-04-20 22:10 | EDDOCDS ---
Physician Documentation [facility] Name: Eulalia Santos Age: 25 yrs Sex: Female : 1990 Arrival Date: 04/18/2016 Time: 18:58 Bed I1 / M1 Private MD: Osmany Blanco D Disposition: 04/18/16 20:47 Discharged to Home/Self Care. Impression: Cervical disc disorder with radiculopathy, unspecified cervical region - AFFECTING LEFT SIDE, Strain of muscle, fascia and tendon at neck level. - Condition is Stable. - Discharge Instructions: Cervical Radiculopathy. - Prescriptions for Naprosyn 500 mg Oral Tablet - take 1 tablet by ORAL route every 12 hours As needed take with food; 30 tablet. Valium 5 mg Oral Tablet - take 1 tablet by ORAL route at bedtime As needed; 12 tablet. - Medication Reconciliation, Work Release Form - 3 day, Local Pharmacy Hours form. - Follow up: Emergency Department; When: As needed; Reason: Worsening of conditions. Follow up: Private Physician; When: 2 - 3 days; Reason: Wound/Symptom Recheck, Recheck today's complaints, Continuance of care. - Problem is new. - Symptoms have improved. - Notes: THERE WAS NO ABNORMALITY ON YOUR XRAYS OR CT SCAN TODAY. PLEASE FOLLOW UP WITH YOUR PRIMARY CARE PROVIDER IN THE NEXT WEEK TO RECHECK YOUR SYMPTOMS. ANY WORSENING SYMPTOMS, PLEASE RETURN TO THE ER. Historical: - Allergies: Amoxicillin (seizures); PENICILLINS (seizures); - Home Meds: 1. none - PMHx: none; - PSHx: none; - Social history: Smoking status: Patient uses tobacco products, current every day smoker. No barriers to communication noted, The patient speaks fluent Yemeni, Speaks appropriately for age. - Family history: Not pertinent. - : The pt / caregiver states he / she is not on anticoagulants. Home medication list is obtained from the patient. - Exposure Risk Screening:: None identified. 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 4 in. (162.56 cm) (R); Pain 10/10; 21:08 BP 116 / 67; Pulse 71; Resp 16; Temp 97.2; Pulse Ox 97% on R/A; Pain 5/10; ld5 19:00 Body Mass Index 21.46 (56.70 kg, 162.56 cm) gr2 MDM: 19:18 Diazepam 5 mg IM once ordered. dt4 19:18 ketorolac 60 mg IM once ordered. dt4 19:19 CT Spine,Cervical W/o Contrast Ordered. EDMS 19:20 Chest, 2 View (pa\E\lat) Ordered. EDMS 19:20 Shoulder, Complete Ordered. EDMS 19:59 ED course: AT FIRST ENCOUNTER WITH PT, PT LAYING ON RIGHT SIDE ON BED, CRYING, dt4 HYPERVENTILATING, KEEPING EYES CLOSED, ANXIOUS. CHECKED ON PT AT THIS TIME, PT LAYING SUPINE WITH LEGS CROSSED ON EXAM BED, LOOKING AT CELL PHONE, NOT CRYING. STATES PAIN HAS IMPROVED WITH MEDICATIONS. . 20:02 Financial registration complete. 20:41 [facility] Payment Agreement was scanned into [employer] and attached to record. gb 21:13 T-Sheet-- Draft Copy was scanned into [employer] and attached to record. klr Administered Medications: 19:34 Drug: Diazepam 5 mg [diazepam 5 mg/mL injection syringe (1 mL)] Route: IM; Site: right jo3 gluteus; 19:34 Drug: ketorolac 60 mg [ketorolac 30 mg/mL (1 mL) injection solution (2 mL)] Route: IM; jo3 Site: left gluteus; Signatures: Dispatcher [employer] EDMS Marlen Mtz, Reg Reg Kathleen Biggs RN RN jo3 Irena Velazquez RN RN thomas5 Shelly NegronRN RN Carmen Ureña PA-C PA-C dt4 Redder, Kathie klr The chart was reviewed and I authenticate all verbal orders and agree with the evaluation and treatment provided.Attachments: 20:41 [facility] Payment Agreement gb 21:13 T-Sheet-- Draft Copy klr Chart Complete MTDD
--- NOTE | 2016-04-20 22:10 | EDDOCDS ---
Nurse's Notes [facility] Name: Eulalia Santos Age: 25 yrs Sex: Female : 1990 Arrival Date: 04/18/2016 Time: 18:58 Bed I1 / M1 Private MD: Osmany Blanco D Diagnosis: Cervical disc disorder with radiculopathy, unspecified cervical region-AFFECTING LEFT SIDE;Strain of muscle, fascia and tendon at neck level Presentation: 04/18 19:04 Presenting complaint: Patient states: thinks she dislocated her left shoulder and she dsf is SOB and dizzy. pt thinks her work out brace was to tight. Adult Sepsis Screening: The patient does not have new or worsening altered mentation. Patient's respiratory rate is less than 22. Systolic blood pressure is greater than 100. Patient has a qSOFA score of 0- Negative Sepsis Screen. Suicide/Homicide risk assessment- the patient denies having any suicidal and/or homicidal ideations and does not present with any other emotional, behavioral or mental health complaints. 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 Transition of care: patient was not received from another setting of care. 19:04 Acuity: SMITH Level 3 dsf 19:04 Method Of Arrival: Walkin/Carried/Asstd dsf Triage Assessment: 19:06 General: Appears distressed, uncomfortable, Behavior is appropriate for age. Pain: dsf Location: left shoulder blade Pain currently is 9 out of 10 on a pain scale. Quality of pain is described as sharp, tingling. HIV screening NA for this visit Offered previously. Respiratory: Onset: The symptoms/episode began/occurred today, Airway is patent Respiratory effort is unlabored, Respiratory pattern is tachypnea. Derm: Skin is pink, warm & dry. Musculoskeletal: Reports pain in left shoulder blade unable to move left arm. left fingers feel tingling. [facility] [employer]: 19:06 had her son 8 months ago has not stoppped bleeding since then dsf Historical: - Allergies: Amoxicillin (seizures); PENICILLINS (seizures); - Home Meds: 1. none - PMHx: none; - PSHx: none; - Social history: Smoking status: Patient uses tobacco products, current every day smoker. No barriers to communication noted, The patient speaks fluent Togolese, Speaks appropriately for age. - Family history: Not pertinent. - : The pt / caregiver states he / she is not on anticoagulants. Home medication list is obtained from the patient. - Exposure Risk Screening:: None identified. Screenin:51 Screening information is obtained from the patient. Fall risk: No risks identified. jo3 Assistance ADL's: requires no assistance with activities of daily living. Abuse/DV Screen: The patient / caregiver reports he/she is: not in a situation that causes fear, pain or injury. Nutritional screening: No deficits noted. Advance Directives: There is no active DNR order. home support is adequate. Assessment: 19:51 General: Appears in no apparent distress, Behavior is cooperative, flat. Neurological: jo3 Level of Consciousness is awake, alert, Oriented to person, place, time. Cardiovascular: No deficits noted. Respiratory: Airway is patent Respiratory effort is even, unlabored. Derm: Skin is pink, warm & dry. Musculoskeletal: Reports pain in left shoulder. 21:08 General: Appears in no apparent distress, Behavior is cooperative. Pain: Pain currently ld5 is 5 out of 10 on a pain scale. Neurological: Level of Consciousness is awake, alert. Respiratory: Airway is patent Respiratory effort is even, unlabored. Vital Signs: 19:00 BP 127 / 74; Pulse 72; Resp 18 S; Temp 96.9(O); Pulse Ox 97% on R/A; Weight 56.7 kg gr2 (R); Height 5 ft. 4 in. (162.56 cm) (R); Pain 10/10; 21:08 BP 116 / 67; Pulse 71; Resp 16; Temp 97.2; Pulse Ox 97% on R/A; Pain 5/10; ld5 19:00 Body Mass Index 21.46 (56.70 kg, 162.56 cm) gr2 Vitals: 19:00 Log In Time: April 18, 2016 at 19:00. gr2 ED Course: 19:00 Patient visited by Cody Otoole. gr2 19:00 Osmany Blanco is Private Physician. gr2 19:00 Patient moved to Waiting gr2 19:02 Patient visited by Cody Otoole. gr2 19:02 Patient moved to Pre RCE gr2 19:05 Triage Initiated dsf 19:13 [facility] dt4 19:13 Araceli Wright MD is Attending Physician. dt4 19:13 Patient visited by Carmen Temple PA-C. dt4 19:13 Patient moved to I1 / M1 dt4 19:50 Patient visited by Kathleen Biggs RN. jo3 19:51 The patient / caregiver is instructed regarding the plan of care and ED course. jo3 19:51 No IV's were initiated during this patient's visit. No procedures done that require jo3 assistance. 19:53 Patient visited by Kathleen Biggs RN. jo3 19:59 Patient visited by Carmen Temple PA-C. dt4 20:41 [facility] Payment Agreement was scanned into [employer] and attached to record. gb 21:06 CT Spine,Cervical W/o Contrast Returned. EDMS 21:10 Patient visited by Irena Velazquez RN. ld5 21:13 T-Sheet-- Draft Copy was scanned into [employer] and attached to record. klr 04/19 09:13 Chest, 2 View (pa\E\lat) Returned. EDMS 09:13 Shoulder, Complete Returned. EDMS Administered Medications: 04/18 19:34 Drug: Diazepam 5 mg [diazepam 5 mg/mL injection syringe (1 mL)] Route: IM; Site: right jo3 gluteus; 19:34 Drug: ketorolac 60 mg [ketorolac 30 mg/mL (1 mL) injection solution (2 mL)] Route: IM; jo3 Site: left gluteus; Order Results: Radiology Order: CT Spine,Cervical W/o Contrast Test: CT Spine,Cervical W/o Contrast REASON FOR EXAMINATION: LEFT SCAPULAR PAIN, RADICULOPATHY; Clinical: Radiculopathy .; ; Technique: Axial noncontrast images from the skull base to the thoracic inlet; with coronal and sagittal re-formations; ; Findings:; Normal alignment is maintained. Straightening of normal lordosis may be; secondary to positioning versus pain/spasm. Cervical vertebral bodies including; transverse processes and spinous processes are intact and there is no evidence; for acute fracture / compression injury or subluxation. Spinal canal is patent.; Posterior elements are intact. Paravertebral soft tissues are normal.; ; Impression:; Essentially normal noncontrast CT of the cervical spine. If the patient remains; symptomatic consider MRI for more definitive evaluation of the spinal canal; contents and intervertebral discs.; ; ; Signed by; Mani Greer MD 04/18/2016 08:08 P; Radiology Order: Chest, 2 View (pa\E\lat) Test: Chest, 2 View (pa\E\lat) REASON FOR EXAMINATION: LEFT SCAPULAR PAIN, SOB; Clinical: Shortness of breath and left scapular pain .; ; Comparison: None .; ; Technique: PA and lateral.; ; Findings:; The mediastinum and cardiac silhouette are normal. The lung major are clear and; without acute consolidation, effusion, or pneumothorax. The skeletal structures; are intact and normal.; ; Impression:; 1. No acute cardiopulmonary process.; ; ; Signed by; Mani Greer MD 04/19/2016 08:34 A; Radiology Order: Shoulder, Complete Test: Shoulder, Complete REASON FOR EXAMINATION: LEFT SCAPULAR PAIN; Clinical: Left scapular pain .; ; Technique: Internal rotation, external rotation, and Y view left shoulder .; ; Findings:; No acute fracture or dislocation. The acromioclavicular and glenohumeral joints; are intact. No periarticular calcifications or degenerative changes are; appreciated. Sub acromial space is normal. Surrounding soft tissues are; unremarkable.; ; Impression:; Normal left shoulder radiographs.; ; ; Signed by; Mani Greer MD 04/19/2016 08:35 A; Outcome: 20:47 Discharge ordered by Provider. dt4 21:08 Discharge Assessment: Patient awake, alert and oriented x 3. No cognitive and/or ld5 functional deficits noted. Patient verbalized understanding of disposition instructions. patient administered narcotics - no. The following High Risk Discharge criteria are identified: None. Discharged to home ambulatory, with significant other. Condition: stable. Discharge instructions given to patient, Instructed on discharge instructions, follow up and referral plans. medication usage, no driving heavy equipment, Demonstrated understanding of instructions, medications, Pt was receptive of discharge instructions/ teaching. Prescriptions given X 2, Work note provided to patient. CT Study completed. Property :Personal belongings accompany Pt. 21:10 Patient left the ED. ld5 Signatures: Dispatcher [employer] EDMarlen Liu, Kathleen AppleRN RN [email or web address] Irena VelazquezRN RN [email or web address] Shelly Negron,RN RN Cody Rosas2 Carmen Temple PA-C PA-C dt4 Renetta Herrera Chart Complete MTDD
== END 2016-04-18 21:10 | disposition home or self-care (01) ==
LOC: M ED 18:58
DX: M54.12 Radiculopathy, cervical region (principal); R06.02 Shortness of breath; Z88.0 Allergy status to penicillin; F17.210 Nicotine dependence, cigarettes, uncomplicated
CPT/HCPCS: 71020; 72125; 73030; 96372; 99284; J1885; J3360

== ENCOUNTER → 2016-05-09 | Outpatient (REF) | payer OTHER | LOC: M LAB REF 18:14 | PROVIDERS: ATTEND Physician Assistant | DX: R30.0 Dysuria (principal) ==

== ENCOUNTER 2016-05-27 05:39 | Emergency (ER) | payer OTHER ==
[~2016-05-27] VITALS: Ht 162.6 cm; Wt 61.2 kg
[2016-05-27 05:47] VITALS: BP 122/78
[2016-05-27] MEDS ORDERED: MICR1TAB9 PO (05:52)
[2016-05-27] MEDS ORDERED: ZANT300T PO (07:41)
[2016-05-27] MEDS ORDERED: PRED20TA PO (07:41)
[2016-05-27] MEDS ORDERED: BENA25TA9 PO (07:41)
== END 2016-05-27 07:47 | disposition home or self-care (01) ==
LOC: M ED 06:39
DX: L50.1 Idiopathic urticaria (principal); Z79.899 Other long term (current) drug therapy; Z88.0 Allergy status to penicillin; F17.210 Nicotine dependence, cigarettes, uncomplicated

== ENCOUNTER → 2016-06-12 | Outpatient (REF) | payer OTHER ==
[~2016-06-12] MED LIST: BENA25TA9 PO; MICR1TAB9 PO; PRED20TA PO; ZANT300T PO
[2016-06-12 16:42] LABS: BASO % 0.5 % (0.0-1.0); EOS # 0.2 K/mm3 (0.0-0.50); EOS % 1.9 % (0.0-3.0); LARGE UNSTAINED CELL # 0.1 K/mm3 (0.0-0.4); LARGE UNSTAINED CELL % 1.3 % (0.0-4.0); LYMPH # 1.5 K/mm3 (1.5-6.5); LYMPH % 18.8 % (24.0-44.0); MEAN CORPUSCULAR HEMOGLOBIN 29.3 pg (27.0-33.0); MEAN CORPUSCULAR HGB CONC 32.3 g/dl (32.0-36.5); MEAN CORPUSCULAR VOLUME 90.7 fl (80.0-96.0); MONO # 0.4 K/mm3 (0.0-0.8); MONO % 4.9 % (0.0-5.0); NEUTROPHILS # 5.7 K/mm3 (1.8-7.7); NEUTROPHILS % 72.6 % (36.0-66.0); PLATELET COUNT, AUTOMATED 245 k/mm3 (150-450); RED CELL DISTRIBUTION WIDTH 14.2 % (11.5-14.5); WHITE BLOOD COUNT 7.9 K/mm3 (4.0-10.0)
[2016-06-12 17:03] LABS: ERYTHROCYTE SEDIMENTATION RATE 2 mm/hr (0-20)
[2016-06-12 17:49] LABS: ALBUMIN 4.1 GM/DL (3.2-5.2); ALBUMIN/GLOBULIN RATIO 1.37 (1.00-1.93); ALKALINE PHOSPHATASE 86 U/L (45-117); ALT/SGPT 25 U/L (12-78); ANION GAP 6 MEQ/L (8-16); AST/SGOT 11 U/L (15-37); BILIRUBIN,TOTAL 0.5 MG/DL (0.2-1.0); BLOOD UREA NITROGEN 14 MG/DL (7-18); CALCIUM LEVEL 8.9 MG/DL (8.5-10.1); CARBON DIOXIDE LEVEL 28 MEQ/L (21-32); CHLORIDE LEVEL 108 MEQ/L (98-107); CREATININE FOR GFR 0.62 MG/DL (0.55-1.02); GLOMERULAR FILTRATION RATE > 60.0 (>60); GLUCOSE, FASTING 78 MG/DL (70-105); HCG, SERUM QUANTITATIVE < 1.0 MIU/ML; POTASSIUM SERUM 4.3 MEQ/L (3.5-5.1); SODIUM LEVEL 142 MEQ/L (136-145); THYROXINE (T4) 6.5 UG/DL (4.5-12.0); TOTAL PROTEIN 7.1 GM/DL (6.4-8.2)
== END ==
LOC: M SFHCCLAY 10:54
PROVIDERS: ATTEND Family Medicine
DX: R11.2 Nausea with vomiting, unspecified (principal); R19.7 Diarrhea, unspecified; R63.4 Abnormal weight loss

== ENCOUNTER → 2016-12-03 | Outpatient (CLI) | payer OTHER ==
[~2016-12-03] MED LIST changes: +BENA25TA10 PO; -BENA25TA9 PO
--- NOTE | 2016-12-03 15:42 | REP ---
Chest two views HISTORY: Chest pain Comparison: 04/18/2016 The lungs are clear. The heart is normal in size. The pulmonary vasculature is normal in appearance. The bony structure is intact. IMPRESSION: No acute disease.
== END ==
LOC: M CLY 15:07
PROVIDERS: ATTEND Family Medicine
DX: R07.89 Other chest pain (principal)

== ENCOUNTER 2017-05-23 14:47 | Emergency (ER) | payer OTHER | END 2017-05-23 16:59 | disposition home or self-care (01) | LOC: M ED 14:47 | DX: S92.155A Nondisplaced avulsion fracture (chip fracture) of left talus, initial encounter for closed fracture (principal); S92.215A Nondisplaced fracture of cuboid bone of left foot, initial encounter for closed fracture; X50.1XXA Overexertion from prolonged static or awkward postures, initial encounter; Y92.098 Other place in other non-institutional residence as the place of occurrence of the external cause; F17.200 Nicotine dependence, unspecified, uncomplicated; Z88.0 Allergy status to penicillin; Z79.899 Other long term (current) drug therapy | CPT/HCPCS: 73630 ==

== ENCOUNTER → 2017-06-17 | Outpatient (REF) | payer OTHER ==
[2017-06-17 16:26] LABS: BASO # 0.1 10^3/uL (0.0-0.2); BASO % 0.9 % (0.0-1.0); EOS # 0.3 10^3/uL (0.0-0.50); EOS % 4.3 % (0.0-3.0); HEMATOCRIT 42.5 % (36.0-47.0); HEMOGLOBIN 14.4 g/dl (12.0-15.5); IMMATURE GRANULOCYTE % 0.3 % (0-3.0); LYMPH # 2.1 10^3/uL (1.5-6.5); LYMPH % 29.8 % (24.0-44.0); MEAN CORPUSCULAR HGB CONC 33.9 g/dl (32.0-36.5); MEAN CORPUSCULAR VOLUME 91.6 fl (80.0-96.0); MONO # 0.5 10^3/uL (0.0-0.8); MONO % 7.3 % (0.0-5.0); NEUTROPHILS % 57.4 % (36.0-66.0); PLATELET COUNT, AUTOMATED 272 10^3/uL (150-450); RED BLOOD COUNT 4.64 10^6/uL (4.00-5.40); RED CELL DISTRIBUTION WIDTH 13.6 % (11.5-14.5)
[2017-06-17 17:29] LABS: ALBUMIN 4.1 GM/DL (3.2-5.2); ALBUMIN/GLOBULIN RATIO 1.28 (1.00-1.93); ALKALINE PHOSPHATASE 85 U/L (45-117); ALT/SGPT 17 U/L (12-78); ANION GAP 7 MEQ/L (8-16); AST/SGOT 15 U/L (7-37); BILIRUBIN,TOTAL 0.5 MG/DL (0.2-1.0); BLOOD UREA NITROGEN 12 MG/DL (7-18); CALCIUM LEVEL 9.1 MG/DL (8.5-10.1); CARBON DIOXIDE LEVEL 28 MEQ/L (21-32); CHLORIDE LEVEL 106 MEQ/L (98-107); CREATININE FOR GFR 0.59 MG/DL (0.55-1.30); GLOMERULAR FILTRATION RATE > 60.0 (>60); GLUCOSE, FASTING 76 MG/DL (70-100); POTASSIUM SERUM 3.7 MEQ/L (3.5-5.1); SODIUM LEVEL 141 MEQ/L (136-145); TOTAL PROTEIN 7.3 GM/DL (6.4-8.2)
[2017-06-20 00:06] LABS: H PYLORI SERUM QUANT IGM <9.0 units (0.0-8.9)
[2017-06-20 00:06] LABS: H PYLORI SERUM QUANT IGA <9.0 units (0.0-8.9); TISSUE TRANSGLUTAMINASE IgA <2 U/mL (0-3)
== END ==
LOC: M SFHCCLAY 10:24
DX: R11.2 Nausea with vomiting, unspecified (principal)

== ENCOUNTER → 2018-01-07 | Outpatient (CLI) | payer OTHER | LOC: M CLY 09:12 | DX: M25.561 Pain in right knee (principal) | CPT/HCPCS: 73564 ==

== ENCOUNTER → 2018-05-03 | Outpatient (REF) | payer OTHER ==
[~2018-05-03] MED LIST changes: +FAMO20TA PO; +IBUP-1022 PO; -ZANT300T PO; +ZANT300T9 PO; +antidepressant PO
[2018-05-03 22:03] LABS: CHLAMYDIA DNA AMPLIFICATION NEGATIVE (NEGATIVE); GC DNA AMPLIFICATION NEGATIVE (NEGATIVE)
== END ==
LOC: M LAB REF 16:48
PROVIDERS: ATTEND Physician Assistant
DX: N39.0 Urinary tract infection, site not specified (principal)

== ENCOUNTER 2018-05-16 09:10 | Emergency (ER) | payer OTHER ==
[~2018-05-16] VITALS: Ht 162.6 cm; Wt 65.1 kg
--- NOTE | 2018-05-16 11:50 | REP ---
FIRST TRIMESTER ULTRASOUND: Real-time sonographic evaluation of the pelvis performed utilizing transabdominal and endovaginal technique. Uterus measures 9.6 x 4.8 x 5.9 cm. Endometrial thickness is 11 mm. No gestational sac is seen within the endometrial canal. Right ovary measures 3.6 x 2.8 x 2.9 cm and left ovary 2.9 x 2.5 x 2.3 cm. A cystic structure in the right ovary may represent a corpus luteum 2.3 cm in diameter. There is no torsion of either ovary, RI right ovary 0.46 and left ovary 0.41. There is no adnexal mass or free fluid. Findings may represent very early intrauterine , missed AB or ectopic . Suggest correlation with serial quantitaive beta hCG values, and followup ultrasound as necessary. Electronically Signed by Angelito Woodward MD 05/18/2018 10:53 A
[2018-05-16 12:17] VITALS: BP 127/66
== END 2018-05-16 12:19 | disposition home or self-care (01) ==
LOC: M ED 09:10
DX: O20.0 Threatened abortion (principal); O99.619 Diseases of the digestive system complicating pregnancy, unspecified trimester; O99.330 Smoking (tobacco) complicating pregnancy, unspecified trimester; Z88.0 Allergy status to penicillin

== ENCOUNTER → 2019-11-27 | Outpatient (REF) | payer OTHER ==
[~2019-11-27] MED LIST changes: +MICR1TAB17 PO; -MICR1TAB9 PO
[2019-11-27 17:27] LABS: BASO # 0.1 10^3/uL (0.0-0.2); EOS # 0.2 10^3/uL (0.0-0.5); EOS % 3.3 % (0.0-3.0); HEMATOCRIT 45.8 % (36.0-47.0); HEMOGLOBIN 15.5 g/dl (12.0-15.5); LYMPH # 2.4 10^3/uL (1.5-5.0); LYMPH % 41.8 % (24.0-44.0); MEAN CORPUSCULAR HEMOGLOBIN 31.2 pg (27.0-33.0); MEAN CORPUSCULAR HGB CONC 33.8 g/dl (32.0-36.5); MEAN CORPUSCULAR VOLUME 92.2 fl (80.0-96.0); MONO # 0.5 10^3/uL (0.0-0.8); MONO % 8.1 % (0.0-5.0); NEUTROPHILS # 2.7 10^3/uL (1.5-8.5); NEUTROPHILS % 45.5 % (36.0-66.0); PLATELET COUNT, AUTOMATED 303 10^3/uL (150-450); RED BLOOD COUNT 4.97 10^6/uL (4.00-5.40); WHITE BLOOD COUNT 5.8 10^3/uL (4.0-10.0)
[2019-11-27 17:37] LABS: ALBUMIN 4.4 GM/DL (3.2-5.2); ALT/SGPT 26 U/L (12-78); BILIRUBIN,TOTAL 0.4 MG/DL (0.2-1.0); BLOOD UREA NITROGEN 17 MG/DL (7-18); CALCIUM LEVEL 9.1 MG/DL (8.5-10.1); CARBON DIOXIDE LEVEL 28 MEQ/L (21-32); CHLORIDE LEVEL 108 MEQ/L (98-107); CREATININE FOR GFR 0.65 MG/DL (0.55-1.30); GLOMERULAR FILTRATION RATE > 60.0 (>60); GLUCOSE, FASTING 89 MG/DL (70-100); RHEUMATOID FACTOR QUANT < 10.0 IU/ML (<15.0); SODIUM LEVEL 139 MEQ/L (136-145); TOTAL PROTEIN 7.6 GM/DL (6.4-8.2)
[2019-11-27 18:35] LABS: ERYTHROCYTE SEDIMENTATION RATE 2 mm/hr (0-20)
[2019-11-28 14:08] LABS: H PYLORI QUALITATIVE IgG NEGATIVE (NEGATIVE)
[2019-11-30 03:07] LABS: ANTINUCLEAR ANTIBODIES DIRECT Negative (Negative); CYCLIC CITRULLINATED PEPTIDE 2 units (0-19)
== END ==
LOC: M LABDRAWC 16:46
PROVIDERS: ATTEND Family Medicine
DX: M25.531 Pain in right wrist (principal); K21.9 Gastro-esophageal reflux disease without esophagitis

== ENCOUNTER → 2023-08-11 | Outpatient (CLI) | payer OTHER ==
[~2023-08-11] MED LIST changes: +PROHANCE 279.3MG/ML 15ML VIAL As Ordered ONE
== END ==
LOC: M RAD 09:14
PROVIDERS: ATTEND Physician Assistant Medical
DX: R51.9 Headache, unspecified (principal)
CPT/HCPCS: 70553; A9576